=== PATIENT | male | born 1965 | race Caucasian/White ===

== ENCOUNTER 2019-12-18 08:29 | Outpatient (REF) | payer BC, SELFPAY ==
[2019-12-18 14:26] LABS: Anion Gap 15 (12-20); Blood Urea Nitrogen 18 mg/dL (9-16); Calcium 8.4 mg/dL (8.4-10.2); Carbon Dioxide 28 mmol/L (22-29); Chloride 101 mmol/L (96-108); Cholesterol 222 mg/dL; Estimated Glomerular Filt Rate > 60; Glucose Fasting 109 mg/dL (60-99); HDL Cholesterol 64 mg/dL; LDL Cholesterol Calculated 98 mg/dl; Potassium 4.2 mmol/l (3.3-5.1); Sodium 140 mmol/L (135-145); Triglycerides 302 mg/dL
[2019-12-18 14:48] LABS: TSH reflex Free T4 1.15 mIU/mL (0.32-4.0)
[2019-12-18 16:58] LABS: Alanine Aminotransferase 47 U/L (0-40); Albumin Level 4.5 g/dL (3.5-5.0); Alkaline Phosphatase 82 U/L (39-117); Anion Gap 14 (12-20); Aspartate Amino Transferase 30 U/L (5-37); Bilirubin Total 0.5 mg/dL (0.0-1.0); Blood Urea Nitrogen 17 mg/dL (9-16); Calcium 8.4 mg/dL (8.4-10.2); Carbon Dioxide 29 mmol/L (22-29); Chloride 101 mmol/L (96-108); Estimated Glomerular Filt Rate > 60; Glucose Fasting 115 mg/dL (60-99); Potassium 4.3 mmol/l (3.3-5.1); Sodium 140 mmol/L (135-145); Total Protein 7.1 g/dL (6.5-8.0)
== END 2019-12-18 08:30 | disposition home or self-care (01) ==
LOC: HO.HMGCLDS 08:29
PROVIDERS: PCP Nurse Practitioner Family; Visit Provider Nurse Practitioner Family
DX: Z00.00 Encounter for general adult medical examination without abnormal findings (principal); Z12.5 Encounter for screening for malignant neoplasm of prostate
CPT/HCPCS: 80048; 80053; 80061; 84153; 84443

== ENCOUNTER 2019-12-22 07:15 | Outpatient (REF) | payer BC, MEDICARE, SELFPAY ==
[2019-12-22 10:04] LABS: HIV Num 1 2.07 S/CO (0.00-0.99)
[2019-12-22 10:41] LABS: HIV Num 2 2.02 S/CO; HIV Num 3 2.07 S/CO
[2019-12-22 10:45] LABS: HIV AB/AG Reactive (Nonreactive)
[2019-12-23 13:52] LABS: HIV 1 Antibody NEGATIVE (NEGATIVE); HIV 2 Antibody NEGATIVE (NEGATIVE)
[2020-01-02 19:17] LABS: HIV-1 RNA TMA Qualitative Not Detected (Not Detected)
[2020-01-12 00:33] LABS: HIV Genotype NOT DETECTED
== END 2019-12-22 07:16 | disposition home or self-care (01) ==
LOC: HO.HMGCLDS 07:15
PROVIDERS: PCP Nurse Practitioner Family; Visit Provider Nurse Practitioner Family
DX: Z11.4 Encounter for screening for human immunodeficiency virus [HIV] (principal)
CPT/HCPCS: 86701; 86702; 87389; 87900; 87901

== ENCOUNTER 2020-02-16 10:39 | Outpatient (REF) | payer BC, MEDICARE, SELFPAY ==
--- NOTE | 2020-02-16 10:44 | XR_ITS ---
EXAMINATION: XR KNEE, LEFT CLINICAL INFORMATION: M25.462 - Effusion, left knee COMPARISON: None TECHNIQUE: Four views of the left knee. FINDINGS: There is no fracture or dislocation. The bony mineralization is normal. There are degenerative changes involving the medial knee joint compartment with mild joint narrowing and marginal osteophytes. There are also degenerative changes patellofemoral joint. Spurring is also seen at the insertion quadriceps and patellar tendon patella and at the origin patellar tendon. There is no erosive change or chondrocalcinosis. Trace suprapatellar effusion is suggested with mild thickening of the bursa. There is prepatellar soft tissue swelling. Hoffa's fat pad in the deep infrapatellar recess are preserved. XR/XR knee LT 4V IMPRESSION: 1. Osteoarthritic changes medial knee joint compartment and patellofemoral joint. 2. Trace suprapatellar effusion. Prepatellar soft tissue swelling. 3. Spurring at quadriceps insertion patella and at origin patellar tendon.
== END 2020-02-16 10:40 | disposition home or self-care (01) ==
LOC: HO.HMGCX 10:39
PROVIDERS: PCP Nurse Practitioner Family; Visit Provider Nurse Practitioner Family
DX: M25.462 Effusion, left knee (principal)
CPT/HCPCS: 73564

== ENCOUNTER 2020-12-16 09:15 | Outpatient (REF) | payer BC, MEDICARE, SELFPAY ==
[2020-12-16 11:41] LABS: Appearance Urine CLEAR; Color Urine YELLOW; Glucose Urine UA NEG (NEG); Leukocyte Esterase Urine NEG (NEG); Nitrite Urine NEG (NEG); Urine Blood NEG (NEG); Urine Ketones NEG (NEG); Urine Protein NEG (NEG-TRACE)
[2020-12-16 11:52] LABS: D Dimer 344 NG/ML
[2020-12-16 12:03] LABS: Alanine Aminotransferase 32 U/L (0-40); Alkaline Phosphatase 92 U/L (39-117); Anion Gap 15 (12-20); Aspartate Amino Transferase 18 U/L (5-37); Bilirubin Total 0.7 mg/dL (0.0-1.0); Blood Urea Nitrogen 13 mg/dL (9-16); Calcium 9.3 mg/dL (8.4-10.2); Carbon Dioxide 29 mmol/L (22-29); Chloride 103 mmol/L (96-108); Cholesterol 210 mg/dL; Estimated Glomerular Filt Rate > 60; Glucose Fasting 109 mg/dL (60-99); HDL Cholesterol 43 mg/dL; LDL Cholesterol Calculated 140 mg/dl; Potassium 4.6 mmol/L (3.3-5.1); Sodium 142 mmol/L (135-145); Total Protein 6.6 g/dL (6.5-8.0); Triglycerides 135 mg/dL
[2020-12-16 12:25] LABS: Prostate Specific Antigen Scr 0.53 ng/mL (<0.05-4.0); TSH reflex Free T4 0.97 uIU/mL (0.32-4.0)
== END 2020-12-16 09:16 | disposition home or self-care (01) ==
LOC: HO.HMGCLDS 09:15
PROVIDERS: PCP Nurse Practitioner Family; Visit Provider Nurse Practitioner Family
DX: Z00.00 Encounter for general adult medical examination without abnormal findings (principal); Z12.5 Encounter for screening for malignant neoplasm of prostate; D68.51 Activated protein C resistance
CPT/HCPCS: 36415; 80053; 80061; 81003; 84153; 84443; 85379

== ENCOUNTER 2021-02-13 10:50 | Outpatient (REF) | payer BC, SELFPAY ==
--- NOTE | ~2021-02-13 | US_ITS ---
EXAMINATION: US VENOUS ULTRASOUND WITH DOPPLER LOWER EXTREMITY, LEFT CLINICAL INFORMATION: Swelling COMPARISON: Previous exams August 2019 and November 2016 TECHNIQUE: Ultrasound of the deep veins is performed from the hip to the calf with compression sonography and color and pulse Doppler assessment. Spectral analysis with color-flow imaging is performed. FINDINGS: The visualized common femoral vein, superficial femoral vein, profunda femoral vein, and popliteal vein shows no evidence of deep venous thrombosis. There is chronic appearing thrombus seen in the peroneal vein and tibioperoneal trunk. This is similar to November 2016 venous ultrasound. This area was not as well appreciated on most recent exam August 2019. This may represent changes from old DVT. The left posterior tibial vein appears narrowed or small in caliber but patent. There is no Hamilton's cyst. US/US venous duplex LE IMPRESSION: Question changes from old DVT in the left peroneal vein and tibioperoneal trunk similar to November 2016 exam. Short-term follow-up exam in several days to exclude acute DVT/assess for interval change should be considered if clinically indicated. Findings will be communicated by the [place] work flow sharepoint engineer Nora Jeong.
== END 2021-02-13 10:51 | disposition home or self-care (01) ==
LOC: HO.HMGCX 10:50
PROVIDERS: PCP Nurse Practitioner Family; Visit Provider Nurse Practitioner Family
DX: M79.89 Other specified soft tissue disorders (principal)
CPT/HCPCS: 93971

== ENCOUNTER 2021-02-22 11:15 | Outpatient (REF) | payer BC, SELFPAY ==
--- NOTE | ~2021-02-22 | US_ITS ---
EXAMINATION: US VENOUS ULTRASOUND WITH DOPPLER LOWER EXTREMITY, LEFT CLINICAL INFORMATION: This a 55-year-old male with history of left leg deep vein thrombosis. COMPARISON: Comparison is made to a venous duplex ultrasound dated 02/13/2021 which demonstrated left peroneal vein deep vein thrombosis. TECHNIQUE: Ultrasound of the deep veins is performed from the hip to the calf with compression sonography and color and pulse Doppler assessment. Spectral analysis with color-flow imaging is performed. FINDINGS: The visualized common femoral vein, superficial femoral vein, profunda femoral vein, and popliteal vein shows no evidence of deep venous thrombosis. There is chronic appearing thrombus seen in the gastrocnemius vein. This was seen on the previous study dated 02/13/2021 and is likely unchanged. This may have also been present on the 2017 examination. The peroneal veins are not adequately evaluated on the current study and I cannot exclude thrombus in the peroneal veins. Thrombus in the peroneal veins would represent deep vein thrombosis. However, no extension of thrombus from the peroneal veins is seen into the popliteal fossa region. There is no Hamilton's cyst. US/US venous duplex LE LT IMPRESSION: 1. 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 2. The peroneal veins cannot be adequately evaluated on the current study. However, no extension of deep vein thrombosis above the peroneal veins is seen on the current study.
== END 2021-02-22 11:16 | disposition home or self-care (01) ==
LOC: HO.HMGCX 11:15
PROVIDERS: PCP Nurse Practitioner Family; Visit Provider Nurse Practitioner Family
DX: I82.502 Chronic embolism and thrombosis of unspecified deep veins of left lower extremity (principal)
CPT/HCPCS: 93971

== ENCOUNTER 2021-06-13 10:44 | Outpatient (REF) | payer BC, SELFPAY ==
[2021-06-13 12:24] LABS: Alanine Aminotransferase 33 U/L (0-40); Albumin Level 3.9 g/dL (3.5-5.0); Alkaline Phosphatase 89 U/L (39-117); Anion Gap 11 (12-20); Aspartate Amino Transferase 18 U/L (5-37); Bilirubin Total 0.8 mg/dL (0.0-1.0); Blood Urea Nitrogen 15 mg/dL (9-16); Calcium 9.5 mg/dL (8.4-10.2); Carbon Dioxide 30 mmol/L (22-29); Chloride 103 mmol/L (96-108); Cholesterol 124 mg/dL; Estimated Glomerular Filt Rate > 60; Glucose Random 136 mg/dL (60-115); HDL Cholesterol 42 mg/dL; LDL Cholesterol Calculated 69 mg/dl; Potassium 4.2 mmol/L (3.3-5.1); Sodium 140 mmol/L (135-145); Total Protein 6.6 g/dL (6.5-8.0); Triglycerides 66 mg/dL
[2021-06-13 12:36] LABS: Uric Acid 4.9 mg/dL (3.4-7.0)
== END 2021-06-13 10:45 | disposition home or self-care (01) ==
LOC: HO.HMGCLDS 10:44
PROVIDERS: Visit Provider Nurse Practitioner Family
DX: M10.9 Gout, unspecified (principal); E78.5 Hyperlipidemia, unspecified
CPT/HCPCS: 36415; 80053; 80061; 84550

== ENCOUNTER → 2021-07-11 07:24 | Outpatient (REF) | payer BC, SELFPAY ==
--- NOTE | 2021-07-11 08:12 | HM_ITS ---
Conclusion: 1. Patient was monitored for total period of 3 days and 1 hour 2. Baseline was normal sinus rhythm with average heart of 76 beats per minute 3. 4 short episode of supraventricular tachycardia noted with longest lasting 6 beats 4. No significant pauses or bradycardia noted 5. Very rare ectopy noted 6. Patient reported multiple events, only 1 of them correlated with PACs/PVCs MTDD
== END ==
LOC: HO.CARD 07:24
PROVIDERS: PCP Nurse Practitioner Family; Visit Provider Nurse Practitioner Family
DX: R00.1 Bradycardia, unspecified (principal); R40.20 Unspecified coma
CPT/HCPCS: 93242

== ENCOUNTER 2021-07-27 09:26 | Outpatient (REF) | payer BC, SELFPAY ==
[2021-07-27 11:09] LABS: MANUAL DIFF FLAG NO
[2021-07-27 11:23] LABS: Basophils Percent Auto 0.9 % (0-2); Eosinophils Absolute Auto 0.1 X10*3/uL (0.0-0.4); Eosinophils Percent Auto 2.3 % (0-4); Hematocrit 42.2 % (42.0-52.0); Hemoglobin 14.1 g/dl (14.0-18.0); Imm Gran Abs Auto 0.01 X10*3/uL (0.00-0.03); Imm Gran Pct Auto 0.3 % (0.0-0.4); Lymphocytes Percent Auto 27.5 % (20-40); Mean Corpuscular HGB Conc 33.4 g/dl (31.0-36.0); Mean Corpuscular Hemoglobin 28.5 pg (27.0-33.0); Mean Corpuscular Volume 85.4 fL (80.0-98.0); Mean Platelet Volume 9.9 fL (9.4-12.4); Monocytes Absolute Auto 0.3 X10*3/uL (0.1-1.2); Monocytes Percent Auto 9.2 % (2-11); Neutrophils Absolute Auto 2.1 x10*3/uL (2.0-8.3); Neutrophils Percent Auto 59.8 % (45-73); Platelet Count 250 X10*3/uL (160-400); Red Blood Count 4.94 X10*6/uL (4.60-5.80); Red Cell Distribution Width 13.1 % (11.0-16.0); White Blood Count 3.5 X10*3/uL (4.8-10.8)
[2021-07-27 11:48] LABS: Alanine Aminotransferase 57 U/L (0-40); Albumin Level 4.2 g/dL (3.5-5.0); Alkaline Phosphatase 96 U/L (39-117); Anion Gap 11 (12-20); Aspartate Amino Transferase 34 U/L (5-37); Bilirubin Total 0.6 mg/dL (0.0-1.0); Blood Urea Nitrogen 12 mg/dL (9-16); Calcium 9.2 mg/dL (8.4-10.2); Carbon Dioxide 29 mmol/L (22-29); Chloride 104 mmol/L (96-108); Estimated Glomerular Filt Rate > 60; Glucose Random 102 mg/dL (60-115); Iron 94 mcg/dL (45-160); Percent Iron Saturation 30 % (15-50); Potassium 4.1 mmol/L (3.3-5.1); Sodium 140 mmol/L (135-145); Total Iron Binding Capacity 314 mcg/dL (228-428); Total Protein 6.6 g/dL (6.5-8.0); Unsaturated Iron Binding 220 ug/dL
[2021-07-27 12:10] LABS: Ferritin 88 ng/mL (20-250)
[2021-07-27 12:12] LABS: Folate 17.4 ng/mL (> or = 4.0); Vitamin B12 519 pg/mL (200-900)
== END 2021-07-27 09:27 | disposition home or self-care (01) ==
LOC: HO.HMGCLDS 09:26
PROVIDERS: PCP Nurse Practitioner Family; Visit Provider Internal Medicine Medical Oncology
DX: I95.1 Orthostatic hypotension (principal)
CPT/HCPCS: 36415; 80053; 82607; 82728; 82746; 83540; 85025

== ENCOUNTER 2021-08-09 11:46 | Outpatient (REF) | payer BC, SELFPAY ==
--- NOTE | ~2021-08-09 | XR_ITS ---
EXAMINATION: XR CERVICAL SPINE CLINICAL INFORMATION: Cervical disc disorder COMPARISON: None TECHNIQUE: 3 views of the cervical spine were obtained. FINDINGS: There is maintained cervical lordosis. The vertebral heights, alignment is normal. There is loss of C5-C6, C6-C7 and C7-T1 disc heights with mild ventral spondylosis. No visible acute fracture, dislocation or subluxation seen. The prevertebral soft tissues are normal. XR/XR cervical spine 2V IMPRESSION: Mild degenerative disc changes with spondylosis C5-C6, C6-C7 and C7-T1 disc levels. No visible acute fracture or dislocation seen.
[2021-08-09 13:45] LABS: Alanine Aminotransferase 36 U/L (0-40); Albumin Level 4.2 g/dL (3.5-5.0); Alkaline Phosphatase 102 U/L (39-117); Aspartate Amino Transferase 22 U/L (5-37); Bilirubin Direct 0.2 mg/dL (0.0-0.5); Bilirubin Total 0.5 mg/dL (0.0-1.0); Total Protein 6.6 g/dL (6.5-8.0)
[2021-08-10 09:17] LABS: HBc Num1 0.09 S/CO (0.00-0.79); HBsAGNum1 0.22 S/CO (0.00-0.99); Hepatitis B Core Antibody Nonreactive (Nonreactive); Hepatitis B Surface Antigen Negative (Negative); ~HepC Num1 0.19 S/CO (0.00-0.79); ~Hepatitis B Surface Antibody NONREACTIVE (Nonreactive); ~Hepatitis C Antibody Nonreactive (Nonreactive)
[2021-08-11 07:49] LABS: Hepatitis A Antibody IgM 0.28 Index (0-0.79); ~Hepatitis A Antibody IgM Nonreactive (Nonreactive)
== END 2021-08-09 11:47 | disposition home or self-care (01) ==
LOC: HO.XRAY 11:46
PROVIDERS: PCP Nurse Practitioner Family; Visit Provider Nurse Practitioner Family
DX: I95.1 Orthostatic hypotension (principal); R74.8 Abnormal levels of other serum enzymes; M50.90 Cervical disc disorder, unspecified, unspecified cervical region
CPT/HCPCS: 36415; 72040; 80076; 86704; 86706; 86709; 86803; 87340

== ENCOUNTER 2021-08-31 09:17 | Outpatient (REF) | payer BC, SELFPAY ==
--- NOTE | ~2021-08-31 | US_ITS ---
EXAMINATION: US ABDOMEN COMPLETE CLINICAL INFORMATION: Elevated liver function tests. COMPARISON: None TECHNIQUE: Real-time imaging of the abdominal viscera. FINDINGS: PANCREAS: Normal. ABDOMINAL AORTA: The proximal, mid, and distal segments are normal in caliber. INFERIOR VENA CAVA: Visualized portions are normal. LIVER: The liver is normal in size. The liver contour is normal. There is moderately increased liver parenchymal echogenicity. No focal hepatic lesion. There is no intrahepatic biliary duct dilatation seen. GALLBLADDER: There are multiple large shadowing gallstones. The gallbladder is physiologically distended without evidence of polyps, wall thickening or pericholecystic fluid. COMMON BILE DUCT: Normal in caliber measuring 0.2 cm in diameter. RIGHT KIDNEY: Normal. No hydronephrosis. No renal calculi or focal parenchymal lesions. The kidney measures 11.6 cm in maximum dimension. LEFT KIDNEY: Normal. No hydronephrosis. No renal calculi or focal parenchymal lesions. The kidney measures 11.1 cm in maximum dimension. SPLEEN: Normal. The spleen measures 12.6 cm in maximum dimension. FREE FLUID: None. US/US abdomen complete IMPRESSION: 1. There is mild generalized increase in hepatic echotexture, consistent with fatty infiltration or hepatocellular disease. Please correlate clinically. No focal hepatic mass or intrahepatic biliary dilatation is seen. 2. There is cholelithiasis, without cholecystitis or choledocholithiasis.
== END 2021-08-31 09:18 | disposition home or self-care (01) ==
LOC: HO.HMGCX 09:17
PROVIDERS: PCP Nurse Practitioner Family; Visit Provider Nurse Practitioner Family
DX: R74.8 Abnormal levels of other serum enzymes (principal)
CPT/HCPCS: 76700

== ENCOUNTER 2021-10-23 12:23 | Outpatient (REF) | payer BC, SELFPAY ==
--- NOTE | ~2021-10-23 | MR_ITS ---
EXAMINATION: MR LUMBAR SPINE WITHOUT CONTRAST CLINICAL INFORMATION: 56-year-old with lumbar radiculopathy. Low back pain with bilateral arm and leg numbness. COMPARISON: None TECHNIQUE: MRI of the lumbar spine was obtained using routine sequences without contrast. FINDINGS: Coronal Alignment: Normal. Sagittal Alignment: There is 2 to 3 mm of grade 1 retrolisthesis at L1-L2, L2-L3 and L3-L4 with otherwise normal lumbar lordotic curvature. Lumbosacral Junction: Normal. Five (5) nonrib-bearing lumbar-type vertebral bodies. Vertebral Bodies: Normal height. Disc Spaces and Endplates: [id number] intervertebral disc space height loss at L3-L4, L4-L5 and L5-S1 with Schmorl's nodes and disc desiccation at these levels, with multilevel spondylosis between L1-L5 S1 inclusive. Vebq-la-svyyjjga disc space height loss at L2-L3 and moderate disc space height loss at L1-L2 with disc desiccation also noted with Schmorl's nodes at L1-L2. Spinal Canal: No abnormal developmental findings. Bone Marrow: Type I degenerative marrow signal changes seen along the endplates at L1-L2, L3-L4 and L4-L5 and to a lesser degree at L5-S1 with type II marrow signal changes predominantly at L5-S1 and to a lesser degree at the other levels. No suspicious marrow replacing process. Conus Medullaris: Terminates at L1. Morphology and signal is normal. Intradural Nerve Roots: Within normal limits. L5-S1: Posterolateral disc osteophyte complex asymmetric to the right with slight flattening of the dural sac on the right, encroaching on the inferior left neural foramen. There is a superimposed central to right paramedian extruded disc herniation with mild caudal migration indenting the ventral thecal sac slightly encroaching on the traversing right S1 nerve root sleeve. No significant facet arthrosis or canal stenosis. Mild right-sided neural foraminal stenosis is noted with disc osteophyte complex abutting the exiting right L5 nerve root. L4-L5: Mild disc bulging with bilateral foraminal disc protrusions with slight flattening of the ventral dural sac noted. Mild ligamentum flavum thickening and mild facet arthrosis without significant canal stenosis. Mild foraminal narrowing noted bilaterally with bilateral disc protrusions contacting the exiting L4 nerve roots bilaterally. L3-L4: Mild retrolisthesis with disc bulging and superimposed small central disc herniation with mild flattening of the ventral dural sac. There is a small right lateral extraforaminal disc protrusion. Mild facet arthropathy noted bilaterally without significant canal stenosis. No significant neural foraminal stenosis. Right lateral disc protrusion contacts the extraforaminal right L3 nerve root sleeve. L2-L3: Shallow broad-based central to left paramedian disc protrusion, with mild flattening of the ventral dural sac and minor facet arthrosis without significant canal stenosis or neuroforaminal compromise. L1-L2: Retrolisthesis and shallow central disc protrusion with mild flattening of the ventral dural sac is noted with minor facet arthrosis without significant canal stenosis. Mild foraminal narrowing is noted bilaterally. Paraspinal/Retroperitoneal: The paravertebral soft tissues are unremarkable. MR/MR lumbar spine wo con IMPRESSION: 1. Discogenic degenerative changes between L1-L2 and L5-S1 inclusive with multilevel spondylosis, with mild degrees of retrolisthesis between L1-L2 and L3-L4 inclusive. 2. Multilevel disc bulging and disc herniations as described above with mild degrees of multilevel bilateral facet arthropathy without significant spinal canal stenosis. There are predominately mild degrees of multilevel neural foraminal narrowing with disc osteophyte complex abutting the exiting right L5 nerve root and central extruded disc herniation at L5-S1 slightly encroaching on the traversing right S1 nerve root sleeve. Lateral disc protrusions at L4-L5 contacts the exiting L4 nerve roots and right lateral disc protrusion at L3-L4 contacts the extra foraminal right L3 nerve root.
== END 2021-10-23 12:24 | disposition home or self-care (01) ==
LOC: HO.MRI 12:23
PROVIDERS: Visit Provider Nurse Practitioner Family
DX: M54.16 Radiculopathy, lumbar region (principal)
CPT/HCPCS: 72148

== ENCOUNTER → 2021-11-13 09:11 | Outpatient (BNVA) | payer BC, SELFPAY | PROVIDERS: PCP Nurse Practitioner Family; Referring Provider Nurse Practitioner Family; Visit Provider Internal Medicine | DX: I95.1 Orthostatic hypotension (principal) | CPT/HCPCS: 93005 ==

== ENCOUNTER → 2021-11-27 07:11 | Outpatient (REF) | payer BC, SELFPAY ==
--- NOTE | 2021-11-27 07:13 | CA_ITS ---
Transthoracic Echocardiogram Patient (Last, First, Middle): Amadou Colon, Gender: Male Date of : 1965 Age: 56 Procedure Date: 11/27/2021 Procedure Type: Transthoracic Echocardiogram Location: OP Height: 185.42 cm Weight: 88.45 kg BSA: 2.13 m2 Heart Rate: 86 bpm BP: 118 / 60 mmHg Home Health Lvn: SB Referring MD: Saeed Zhang MD Symptoms: R55 - Syncope and collapse Study Quality: Adequate ECG Rhythm: Sinus Conclusions: - The left ventricular systolic function is low normal. The visually estimated ejection fraction is between 50-55%. - Mildly increased right ventricular cavity size. - No obvious valvular pathology seen on this study. Findings Left Ventricle Normal left ventricular cavity size. There is normal left ventricular wall thickness. The left ventricular systolic function is low normal. The visually estimated ejection fraction is between 50-55%. There is no evidence of regional wall motion abnormalities. Diastolic function is normal for age. LV peak GLS -15.5%. Right Ventricle Mildly increased right ventricular cavity size. There is normal right ventricular systolic function. Atria Both atria are normal in size. Aortic Valve There is a normal trileaflet aortic valve. There is no aortic valve stenosis. There is no aortic valve regurgitation. Mitral Valve The mitral valve appears normal. There is no mitral valve regurgitation. There is no mitral valve stenosis. Pulmonic Valve The pulmonic valve is likely normal. Tricuspid Valve Normal tricuspid valve structure. There is trace tricuspid valve regurgitation. Tricuspid regurgitation envelope is inadequate for calculation of right ventricular systolic pressure. Great Vessels The asc aorta is normal in size. Venous The inferior vena cava is normal in size and collapses less than 50% with inspiration. Pericardium/Pleural There is no evidence of pericardial effusion. Prior Study Comparison No prior study available for comparison. Recommendations, Care & Conclusions No obvious valvular pathology seen on this study. Measurements 2D Linear Measurements IVSd: 0.82 0.6-0.9/0.6-1.0 cm LVIDd: 5.51 3.9-5.3/4.2-5.9 cm LVIDd Index: 2.59 2.4-3.2/2.2-3.1 cm/m2 LVIDs: 3.92 2.0-3.6 cm LVPWd: 0.95 0.7-1.1 cm LA Diam: 3.70 2.7-3.8/3.0-4.0 cm LAIDs Index: 1.74 1.5-2.3 cm/m2 LV Mass: 226.96 67-162/88-224 g LV Mass Index: 106.55 43-95/49-115 g/m2 LVOT Diam: 2.50 3.0+(-)1.3 cm 2D Systolic Function EF 4C: 65.40 >55% EF 2C: 58.50 >55% EF BiP: 62.00 >55% Mitral Valve MV Pk E: 0.61 MV PK A: 0.78 MV Decel Time: 142.00 E/A: 0.80 E'Lateral: 12.50 E'Medial: 6.53 E/E' Med: 9.30 E/E' Lat: 4.90 PHT: 42.00 MVA PHT: 5.24 Decel [place]: 4.29 Aortic Valve AoV Pk Jason: 1.09 AoV Mn Jason: 0.81 AoV VTI: 0.24 AoV Pk Grad: 5.00 Aov Mn Grad: 3.00 SHAGGY Cont.VTI: 3.06 LVOT LVOT Pk Jason: 0.79 LVOT Mn Jason: 0.55 LVOT VTI: 0.15 LVOT Pk Grad: 2.00 LVOT Mn Grad: 1.00 LVOT Diam: 2.50 LVOT Area: 4.91 Diastolic Function MV Pk E: 0.61 MV Pk A: 0.78 E/A: 0.80 E'Medial: 6.53 E/E' Med: 9.30 E' Laterial: 12.50 E/E' Lat: 4.90 Right Ventricle TAPSE (mm): 23.10 TVS' Jason: 11.20 Tricuspid Valve RA Press: 8.00 Great Vessels Aorta Sinus of Valsalva: 3.70 2.0-3.5 cm Ao Asc: 3.80 2.1-3.4 cm Pulmonary Valve PV Pk Jason: 0.78 Peak PV Grad: 2.00 Updated in Other Vendor System with Status of Final Saeed Zhang MD electronically signed on 11/27/2021 9:16:22 AM with status of Final
== END ==
LOC: HO.CARD 07:11
PROVIDERS: PCP Nurse Practitioner Family; Visit Provider Internal Medicine
DX: R55 Syncope and collapse (principal)
CPT/HCPCS: 93306; 93356

== ENCOUNTER 2021-12-21 10:28 | Outpatient (REF) | payer BC, SELFPAY ==
--- NOTE | ~2021-12-21 | US_ITS ---
EXAMINATION: US VENOUS BILATERAL LOWER EXTREMITIES (REFLUX EXAM) CLINICAL INDICATION: Leg pain and varicose veins. COMPARISON: None TECHNIQUE: Color flow triplex imaging and compression Doppler was performed to evaluate both the deep and the superficial systems bilaterally. To evaluate the superficial system, the examination was performed in the upright position. Color-flow Doppler ultrasound and compression ultrasound were utilized. In addition, maneuvers were utilized to demonstrate reflux. FINDINGS: 1. DEEP VENOUS ULTRASOUND OF THE RIGHT LOWER EXTREMITY: Respiratory variation, normal compression and augmented flow are noted in the right common femoral vein as well as the right popliteal vein and there is no evidence of deep venous thrombosis at these locations. There is no evidence of reflux in the deep system in either the common femoral vein or the popliteal vein. There is no evidence of a Hamilton's cyst. 2. SUPERFICIAL ULTRASOUND WITH DOPPLER OF RIGHT LOWER EXTREMITY: The right great saphenous vein at the saphenofemoral junction measures 8.3 mm, at the proximal thigh 8.9 mm, at the mid thigh 4.6 mm, above the knee 5.2 mm, at the knee 5.0 mm, [id number] 5.1 mm, midcalf 3.5 mm and at the ankle measures 2.5 mm. Less than 1 second of segmental reflux is noted just above the knee Duplicated Right Great Saphenous Vein: There is a medial accessory 4.2 mm saphenous that does not reflux. The right small saphenous vein measures 3.2 mm and shows no reflux. Accessory Vein of Giacomini: None Incompetent Perforators: None Refluxing varices. There is a 4 mm calf varix present with 3 seconds of reflux. 3. DEEP VENOUS ULTRASOUND OF THE LEFT LOWER EXTREMITY: Respiratory variation, normal compression and augmented flow are noted in the left common femoral vein as well as the left popliteal vein and there is no evidence of deep venous thrombosis at these locations. There is deep venous reflux present on the left in the mid femoral vein through the popliteal vein with reflux times as high as 2.7 seconds. There is no evidence of a Hamilton's cyst. 4. SUPERFICIAL ULTRASOUND WITH DOPPLER OF LEFT LOWER EXTREMITY: Left great saphenous vein at the saphenofemoral junction measures 5.6 mm, at the proximal thigh 9.3 mm, at the mid thigh 5.3 mm, above the knee 6.3 mm, at the knee 4.3 mm, [id number] 6.3 mm, midcalf 4.0 mm and at the ankle measures 4.5 mm. There is reflux throughout most of the saphenous vein with reflux times exceeding 3 seconds. Duplicated Left Great Saphenous Vein: There is a medial accessory 2.8 mm saphenous that does not reflux. The left small saphenous vein measures 3.6 mm and shows no reflux. Accessory Vein of Giacomini: None Incompetent Perforators: Two incompetent perforators are noted in the distal thigh and distal calf measuring 2.0 and 2.4 mm respectively both of which reflux (3.1 seconds and 1.9 seconds). Refluxing Varices: Yes. Multiple refluxing varices are seen measuring as much is 6.5 mm with reflux times of over 3 seconds. US/US venous duplex LE BI IMPRESSION: 1. Deep venous reflux on the left with gross reflux in the left great saphenous vein. 2. The right saphenous venous systems are essentially normal with only a tiny area of reflux just above the right knee in the great saphenous vein. 3. Incompetent perforators on the left as described above with refluxing varices bilaterally.
== END 2021-12-21 10:29 | disposition home or self-care (01) ==
LOC: HO.US 10:28
PROVIDERS: Visit Provider Surgery Vascular Surgery
DX: I83.12 Varicose veins of left lower extremity with inflammation (principal)
CPT/HCPCS: 93970

== ENCOUNTER → 2022-01-12 09:24 | Outpatient (BNVA) | payer BC, SELFPAY | PROVIDERS: PCP Nurse Practitioner Family; Visit Provider Surgery Vascular Surgery | DX: I83.12 Varicose veins of left lower extremity with inflammation (principal); M79.605 Pain in left leg | CPT/HCPCS: 36482 ==

== ENCOUNTER 2022-01-15 13:14 | Outpatient (REF) | payer BC, SELFPAY ==
--- NOTE | ~2022-01-15 | US_ITS ---
EXAMINATION: US VENOUS ULTRASOUND WITH DOPPLER LOWER EXTREMITY, LEFT CLINICAL INFORMATION: Left leg pain COMPARISON: None TECHNIQUE: Ultrasound of the deep veins is performed from the hip to the calf with compression sonography and color and pulse Doppler assessment. Spectral analysis with color-flow imaging is performed. FINDINGS: There is normal venous compression and respiratory variation and augmented flow. The visualized common femoral vein, superficial femoral vein, profunda femoral vein, popliteal vein, and the trifurcation region shows no evidence of deep venous thrombosis. There is no significant popliteal fossa cyst. Greater saphenous vein is 2 mm. Retrograde flow noted from the left SFJ into the GSV is only 5 mm. If the patient's symptoms persist, followup ultrasound in 5 days 7 days might be of value to exclude proximal propagation from a non-visualized calf vein. US/US venous duplex LE IMPRESSION: No DVT demonstrated in the left lower extremity.
== END 2022-01-15 13:15 | disposition home or self-care (01) ==
LOC: HO.US 13:14
PROVIDERS: Visit Provider Surgery Vascular Surgery
DX: M79.605 Pain in left leg (principal)
CPT/HCPCS: 93971

== ENCOUNTER 2022-12-13 09:04 | Outpatient (REF) | payer MEDICARE, SELFPAY ==
[2022-12-13 11:17] LABS: MANUAL DIFF FLAG NO
[2022-12-13 11:36] LABS: Eosinophils Absolute Auto 0.1 X10*3/uL (0.0-0.4); Eosinophils Percent Auto 2.4 % (0-4); Hematocrit 41.2 % (42.0-52.0); Imm Gran Abs Auto 0.02 X10*3/uL (0.00-0.03); Imm Gran Pct Auto 0.5 % (0.0-0.4); Lymphocytes Absolute Auto 1.1 X10*3/uL (1.2-4.9); Lymphocytes Percent Auto 26.6 % (20-40); Mean Corpuscular Hemoglobin 30.8 pg (27.0-33.0); Mean Corpuscular Volume 90.5 fL (80.0-98.0); Mean Platelet Volume 9.9 fL (9.4-12.4); Monocytes Absolute Auto 0.4 X10*3/uL (0.1-1.2); Monocytes Percent Auto 9.4 % (2-11); Neutrophils Absolute Auto 2.5 x10*3/uL (2.0-8.3); Neutrophils Percent Auto 60.1 % (45-73); Platelet Count 211 X10*3/uL (160-400); Red Blood Count 4.55 X10*6/uL (4.60-5.80); Red Cell Distribution Width 12.5 % (11.0-16.0); White Blood Count 4.1 X10*3/uL (4.8-10.8)
[2022-12-13 11:44] LABS: D Dimer High Sensitivity < 150 NG/ML
[2022-12-13 11:55] LABS: Appearance Urine Clear; Color Urine Yellow; Glucose Urine UA Negative (Negative); Leukocyte Esterase Urine Negative (Negative); Nitrite Urine Negative (Negative); PH 5.5 (5.0-9.0); Specific Gravity - Urine 1.015 (1.005-1.025); Urine Blood Negative (Negative); Urine Ketones Negative (Negative); Urine Protein Negative (Neg-Trace)
[2022-12-13 12:31] LABS: Alanine Aminotransferase 32 U/L (0-40); Albumin Level 4.1 g/dL (3.5-5.0); Alkaline Phosphatase 75 U/L (39-117); Anion Gap 14 (12-20); Aspartate Amino Transferase 23 U/L (5-37); Bilirubin Total 0.6 mg/dL (0.0-1.0); Blood Urea Nitrogen 11 mg/dL (9-16); Calcium 9.4 mg/dL (8.4-10.2); Carbon Dioxide 27 mmol/L (22-29); Chloride 105 mmol/L (96-108); Cholesterol 155 mg/dL (<200); Estimated Glomerular Filt Rate > 60; Glucose Fasting 114 mg/dL (60-99); Glucose Random 113 mg/dL (60-115); HDL Cholesterol 60 mg/dL (>40); LDL Cholesterol Calculated 54 mg/dL (<100); Potassium 3.9 mmol/L (3.3-5.1); Sodium 142 mmol/L (135-145); Total Protein 6.8 g/dL (6.5-8.0); Triglycerides 205 mg/dL (<150)
[2022-12-13 12:43] LABS: Prostate Specific Antigen Scr 0.38 ng/mL (<0.05-4.0)
[2022-12-13 12:52] LABS: TSH reflex Free T4 1.43 uIU/mL (0.32-4.0)
== END 2022-12-13 09:05 | disposition home or self-care (01) ==
LOC: HO.HMGCLDS 09:04
PROVIDERS: Internal Medicine Medical Oncology; PCP Nurse Practitioner Family; Visit Provider Nurse Practitioner Family
DX: Z00.00 Encounter for general adult medical examination without abnormal findings (principal); R00.1 Bradycardia, unspecified; Z12.5 Encounter for screening for malignant neoplasm of prostate; E78.5 Hyperlipidemia, unspecified
CPT/HCPCS: 36415; 80053; 80061; 81003; 84153; 84443; 85025; 85379

== ENCOUNTER 2022-12-19 07:31 | Outpatient (AMB) | payer MEDICARE, SELFPAY ==
--- NOTE | 2022-12-19 07:32 | A.OFFPC_ITS ---
Vital Signs 12/19/22 07:35 12/19/22 08:32 Weight 198 lb BP 124/90 H 130/88 Blood Pressure Location Rt brachial Position Sitting Pulse 90 Pulse Source Pulse Oximeter Pulse Oximetry (%) 98 Oxygen Delivery Method Room Air Intake Visit Reasons: Annual PE Allergies No Known Allergies [No Known Allergies*] Allergy (Verified 12/19/22 07:35) Medication List - Last Reconciled 12/19/22 by FABRICIO Garcia loratadine 10 mg PO DAILY multivitamin 1 tab PO DAILY omeprazole 1 cap PO DAILY prazosin 1 mg PO BEDTIME rivaroxaban (Xarelto) 20 mg PO DAILY simvastatin 40 mg PO DAILY venlafaxine ER 225 mg PO DAILY Tobacco use date assessed: 05/02/22 Dental Screening Dental Screen Date: 12/19/22 Did you have a dental visit in the last 12 months?: Yes Did you have a dental problem in the last 6 months where you did not have access to dental care?: No Was dental information given to patient?: Patient has dentist HPI Annual PE HPI Details Pt is here for a PE. Labs were already performed. Colon screen is up to date. PSA is up to date. Denies dribbling with urination, weak stream, and incomplete bladder emptying. Pt reports skin lesions to his right gnosticism and left occipital regions. Will refer to derm. [facility] Medical History Anxiety DVT (deep venous thrombosis) Erectile dysfunction Factor 5 Leiden mutation, heterozygous Gout Internal hemorrhoids Patellar dislocation Venous reflux Surgical History History of left knee surgery History of varicose veins Family History Father Cancer Diabetes mellitus Mother History of knee replacement HTN (hypertension) Melanoma Maternal Grandfather No problems noted. Maternal Grandmother Glaucoma Paternal Grandfather No problems noted. Paternal Grandmother No problems noted. Social History Household Members: Spouse Housing: House Are you a primary career technical education teacher to a significant other at home: No Do you presently have visiting nurse or other home services: No Patient Tobacco Use Status: Never used Tobacco e-Cigarette/Vaping Use: Never Used service: Yes Current occupational status: retired Cognitive needs: No Hearing needs: No Vision needs: Yes Questionnaire PHQ-9 Over the last 2 weeks, how often have you been bothered by any of the following problems? 1. Little interest or pleasure in doing things: more than half the days 2. Feeling down, depressed, or hopeless: more than half the days 3. Trouble falling or staying asleep, or sleeping too much: nearly every day 4. Feeling tired or having little energy: nearly every day 5. Poor appetite or overeating: more than half the days 6. Feeling bad about yourself - or that you are a failure or have let yourself or your family down: more than half the days 7. Trouble concentrating on things, such as reading the newspaper or watching television: more than half the days 8. Moving or speaking so slowly that other people could have noticed. Or the opposite - being so fidgety or restless that you have been moving around a lot more than usual: more than half the days 9. Thoughts that you would be better off or of hurting yourself in some way: not at all Total score: 18 Depression Screening Interpretation: Positive Depression Screening Done: Yes 62439 - PHQ-9 Billing: Yes Source: Developed by Drs. Eduar Martell, Britney Marie, Zi Thomas and colleagues, with an educational mae from [employer]. Thrive Questionnaire Date Thrive assessed: 12/19/22 I am a: Patient What is your living situation today?: I have a steady place to live Within the past 12 months, did the food you bought not last and you didn't have the money to get more?: Never true Within the past 12 months, did you worry whether your food would run out before you got money to buy more?: Never true Do you have trouble paying for medicines?: No Do you have trouble getting transportation to medical appointments?: No Do you have trouble paying your heating and electricity bill?: No Do you have trouble taking care of your child, family member or friend?: No Do you have trouble with day-to-day activities such as bathing, preparing meals, shopping, managing finances, etc.?: No Are you currently unemployed and looking for a job?: No Are you interested in more education?: No AUDIT C Alcohol Use Questionnaire (AUDIT-C) 1. How often do you have a drink containing alcohol?: Never 3. How often do you have six or more drinks on one occasion?: Never Total Score: 0 Score Reviewed/Action Taken: No SABI-7 AMB Questionnaire SABI-7 Date SABI - 7 assessed: 12/19/22 Feeling nervous, anxious, or on edge: 2 = More than half the days Not being able to stop or control worryin = More than half the days Worrying too much about different things: 2 = More than half the days Trouble relaxin = Nearly every day Being so restless that it is hard to sit still: 3 = Nearly every day Becoming easily annoyed or irritable: 2 = More than half the days Feeling afraid as if something awful might happen: 2 = More than half the days Total SABI-7 score (0-4 normal; 5-9 mild; 10-14 moderate; 15-21 severe): 16 Source: Developed by Drs. Eduar Martell, Britney Marie, Zi Thomas and colleagues, with an educational mae from [employer]. SABI-7 Assessment Billing SABI-7 Assessment Tool: SABI-7 Assessment 59309 Review of Systems Const Denies chills and Denies fever(s) Eyes Denies blurry vision ENT Denies vertigo, Denies dizziness and Denies sore throat Card Denies chest pain at rest, Denies chest pain with activity, Denies diaphoresis, Denies dyspnea and Denies dyspnea on exertion Resp Denies cough, Denies dyspnea, Denies dyspnea on exertion and Denies wheezing GI Denies abdominal pain, Denies melena, Denies hematochezia, Denies constipation, Denies diarrhea and Denies loose stools Denies hematuria Musc Denies numbness and Denies tingling Skin/Breast Denies lesions Neuro Denies vertigo, Denies dizziness, Denies numbness and Denies tingling Psych Denies anxiety, Denies depression, Denies homicidal ideation, Denies suicidal ideation and Denies other (substance abuse) Aller/Immun Denies wheezing Physical exam (Primary Care) Vital Signs: Last Vital Signs Pulse 90 12/19/22 07:35 BP 124/90 H 12/19/22 07:35 Pulse Ox 98 12/19/22 07:35 Oxygen Delivery Method Room Air 12/19/22 07:35 Tobacco/Smoking Status: Tobacco use Status Tobacco use date assessed 05/02/22 12/19/22 07:34 Patient Tobacco Use Status Never used Tobacco 12/19/22 07:34 e-Cigarette/Vaping Use Never Used 12/19/22 07:34 Depression Screening Interpretation: Positive Thrive Assessment: Date of Thrive Assessment Date Thrive assessed 12/18/21 12/19/22 07:34 Const General: cooperative Nutritional Appearance: well nourished Orientation/consciousness: patient oriented x3 HENMT Head: Yes normal to inspection, Yes normocephalic and Yes atraumatic Ears: TM's normal bilaterally Eyes General: appearance normal, both eyes and all related structures Alignment and Position: alignment normal and position normal Neck Neck: Yes normal visual inspection and Yes no lymphadenopathy Thyroid: Thyroid normal Resp Effort & Inspection: normal respiratory effort Auscultation: clear to auscultation bilaterally Cardio Rate: regular rate Rhythm: regular rhythm Heart sounds: S1 normal heart sound present, S2 normal heart sound present and no murmurs GI Palpation (GI): Soft to palpation and nontender Auscultation: normal bowel sounds Male General Exam: Yes normal external exam Penis: normal penis Scrotum: scrotum normal, testes descended bilaterally and no inguinal hernias Testes: no testicular mass Skin Other: right temp region with 2 small slightly raised dry darker circular lesions, circular lesion also noted to left lower occipital region. small acne lesions noted to back Rashes: no rashes Neuro General: patient oriented x3, moves all extremities, no focal motor deficits and deep tendon reflexes 2+ bilaterally Romberg Test: Negative Extrem Left lower extremity: edema (trace) Psych Appearance: grossly normal Mental Status: mental status grossly normal Speech and movement: Normal speech and movement present Affect: normal affect Attitude: cooperative Thought process: Normal thought process present Thought content: Normal thought content present Insight: Good insight present (Psych) Judgement: Good judgement present (Psych) Assessment and Plan Assessment & Plan (1) Elevated fasting blood sugar: Code(s): R73.01 - Impaired fasting glucose (2) Skin lesions: Code(s): L98.9 - Disorder of the skin and subcutaneous tissue, unspecified (3) Physical exam: Code(s): Z00.00 - Encounter for general adult medical examination without abnormal findings Plan The patient agreed to the use of a medical officer for this encounter. Scribed for FABRICIO Arias by Gail Lebron medical officer, on 12/19/2022 at 07:45 EST. Orders: Orders Complete Blood Count Auto Diff Today R73.01 - Impaired fasting glucose Comprehensive [facility]. Panel Fast Today R73.01 - Impaired fasting glucose Hemoglobin A1c Today R73.01 - Impaired fasting glucose Referrals Dermatology Referral L98.9 - Disorder of the skin and subcutaneous tissue, unspecified Coding Level of Care Code Est Pt Prev Care 40-64y(20466) Diagnoses Elevated fasting blood sugar R73.01 Skin lesions L98.9 Physical exam Z00.00 Additional Codes SABI-7 Assessment Billing - SABI-7 Assessment Tool: SABI-7 Assessment 33288 ([id number])
[2022-12-19 07:35] VITALS: BP 124/90; PULSE 90; O2SAT 98
[2022-12-19 08:32] VITALS: BP 130/88
== END 2022-12-19 08:09 | disposition home or self-care (01) ==
PROVIDERS: Visit Provider Nurse Practitioner Family
DX: R73.01 Impaired fasting glucose (principal); L98.9 Disorder of the skin and subcutaneous tissue, unspecified; Z00.00 Encounter for general adult medical examination without abnormal findings
CPT/HCPCS: 99396

== ENCOUNTER 2023-02-14 13:24 | Outpatient (AMB) | payer MEDICARE, SELFPAY ==
--- NOTE | 2023-02-14 13:27 | MHC.PC.OV ---
Vital Signs 02/14/23 13:30 Height 5 ft 8 in Weight 240 lb BMI 36.5 BP 140/98 H Blood Pressure Location Lt brachial Position Sitting Pulse 112 H Pulse Source Pulse Oximeter Pulse Oximetry (%) 98 Oxygen Delivery Method Room Air Intake Visit Reasons: congestion x 2 weeks Intake Note: Patient here for congestion thats been present for about 2 weeks, also has a cough, mucus and chest pressure. Last tested himself for covid about 4 days ago. Allergies No Known Allergies [No Known Allergies*] Allergy (Verified 02/14/23 13:32) Medication List - Last Reconciled 02/14/23 by ALEX Garcia-STEVE loratadine 10 mg PO DAILY multivitamin 1 tab PO DAILY omeprazole 1 cap PO DAILY prazosin 1 mg PO BEDTIME rivaroxaban (Xarelto) 20 mg PO DAILY simvastatin 40 mg PO DAILY venlafaxine ER 225 mg PO DAILY Tobacco use date assessed: 02/14/23 Dental Screening Dental Screen Date: 02/14/23 Did you have a dental visit in the last 12 months?: Yes Did you have a dental problem in the last 6 months where you did not have access to dental care?: No Was dental information given to patient?: Patient has dentist HPI congestion x 2 weeks HPI Details Pt c/o fever, chills, cough, congestion, and body aches. Pt reports that his symptoms started in mid-January. Will swab for COVID/flu/RSV. Will send zpak, benzonatate, and prednisone. Denies chest pain, shortness of breath, and dizziness. elevated BP and HR, most likely related to current illness. [facility] Medical History Venous reflux Gout Internal hemorrhoids Factor 5 Leiden mutation, heterozygous Anxiety DVT (deep venous thrombosis) Erectile dysfunction Patellar dislocation Surgical History History of varicose veins History of left knee surgery Family History Father Cancer Diabetes mellitus Mother History of knee replacement HTN (hypertension) Melanoma Maternal Grandfather No problems noted. Maternal Grandmother Glaucoma Paternal Grandfather No problems noted. Paternal Grandmother No problems noted. Social History Household Members: Spouse Housing: House Are you a primary personal carer to a significant other at home: No Do you presently have visiting nurse or other home services: No Patient Tobacco Use Status: Never used Tobacco e-Cigarette/Vaping Use: Never Used service: Yes Current occupational status: retired Cognitive needs: No Hearing needs: No Vision needs: Yes Questionnaire PHQ-9 Over the last 2 weeks, how often have you been bothered by any of the following problems? 1. Little interest or pleasure in doing things: more than half the days 2. Feeling down, depressed, or hopeless: more than half the days 3. Trouble falling or staying asleep, or sleeping too much: nearly every day 4. Feeling tired or having little energy: nearly every day 5. Poor appetite or overeating: more than half the days 6. Feeling bad about yourself - or that you are a failure or have let yourself or your family down: more than half the days 7. Trouble concentrating on things, such as reading the newspaper or watching television: more than half the days 8. Moving or speaking so slowly that other people could have noticed. Or the opposite - being so fidgety or restless that you have been moving around a lot more than usual: more than half the days 9. Thoughts that you would be better off or of hurting yourself in some way: not at all Total score: 18 Depression Screening Interpretation: Positive Depression Screening Follow-up: Existing condition and In treatment Depression Screening Done: Yes 15954 - PHQ-9 Billing: Yes Source: Developed by Drs. Eduar Martell, Britney Marie, Zi Thomas and colleagues, with an educational mae from [employer]. Thrive Questionnaire Date Thrive assessed: 02/14/23 I am a: Patient What is your living situation today?: I have a steady place to live Within the past 12 months, did the food you bought not last and you didn't have the money to get more?: Never true Within the past 12 months, did you worry whether your food would run out before you got money to buy more?: Never true Currently or been in a relationship where the following occur: no concerns reported AUDIT C Alcohol Use Questionnaire (AUDIT-C) 1. How often do you have a drink containing alcohol?: Never 2. How many drinks containing alcohol do you have on a typical day when you are drinking?: 1 or 2 3. How often do you have six or more drinks on one occasion?: Never Total Score: 0 SABI-7 AMB Questionnaire SABI-7 Date SABI - 7 assessed: 02/14/23 Feeling nervous, anxious, or on edge: 2 = More than half the days Not being able to stop or control worryin = More than half the days Worrying too much about different things: 2 = More than half the days Trouble relaxin = Nearly every day Being so restless that it is hard to sit still: 3 = Nearly every day Becoming easily annoyed or irritable: 2 = More than half the days Feeling afraid as if something awful might happen: 2 = More than half the days Total SABI-7 score (0-4 normal; 5-9 mild; 10-14 moderate; 15-21 severe): 16 Source: Developed by Drs. Eduar Martell, Britney Marie, Zi Thomas and colleagues, with an educational ame from [employer]. SABI-7 Assessment Billing SABI-7 Assessment Tool: SABI-7 Assessment 33719 Physical exam (Primary Care) Vital Signs: Last Vital Signs Pulse 112 H 02/14/23 13:30 BP 140/98 H 02/14/23 13:30 Pulse Ox 98 02/14/23 13:30 Oxygen Delivery Method Room Air 02/14/23 13:30 BMI result Body Mass Index 36.5 Tobacco/Smoking Status: Tobacco use Status Tobacco use date assessed 02/14/23 02/14/23 13:36 Patient Tobacco Use Status Never used Tobacco 02/14/23 13:30 e-Cigarette/Vaping Use Never Used 02/14/23 13:30 PHQ-9: PHQ-9 Score PHQ-9: Total score 18 02/14/23 13:36 Depression Screening Interpretation: Positive Depression Screening Follow-up: Existing condition and In treatment Thrive Assessment: Date of Thrive Assessment Date Thrive assessed 02/14/23 02/14/23 13:36 Currently or been in a relationship where the following occur: no concerns reported Const General: cooperative HENMT Ears: TM's normal bilaterally Mouth: Normal oral and palatal mucosa present Throat: Yes tonsils normal Neck Neck: Yes no lymphadenopathy Resp Auscultation: clear to auscultation bilaterally and wheezes (very faint to upper lobes bilat) Cardio Rate: regular rate Rhythm: regular rhythm Heart sounds: S1 normal heart sound present and S2 normal heart sound present Psych Appearance: grossly normal Mental Status: mental status grossly normal Speech and movement: Normal speech and movement present Affect: normal affect Attitude: cooperative Thought process: Normal thought process present Thought content: Normal thought content present Insight: Good insight present (Psych) Judgement: Good judgement present (Psych) Assessment and Plan Assessment & Plan (1) Viral illness: Code(s): B34.9 - Viral infection, unspecified Plan medications sent, pt will call the office if symptoms become worse Orders: Orders SARS-CoV2/FLU/RSV Today B34.9 - Viral infection, unspecified Medications: New benzonatate 100 mg PO BID 7 days PRN 14 caps 0RF cough prednisone 20 mg PO DAILY 5 days 5 tabs 0RF azithromycin For 250 mg dose pack: take 500 mg today (day 1), then 250 mg for 4 days (days 2-5) PO 6 tabs 0RF Coding Level of Care Code Est Pt Level 3 (58081) Diagnoses Viral illness B34.9 Additional Codes SABI-7 Assessment Billing - SABI-7 Assessment Tool: SABI-7 Assessment 65149 ([id number])
[2023-02-14 13:30] VITALS: BP 140/98; PULSE 112; O2SAT 98; BMI 36.5
== END 2023-02-14 16:00 | disposition home or self-care (01) ==
PROVIDERS: PCP Nurse Practitioner Family; Visit Provider Nurse Practitioner Family
DX: B34.9 Viral infection, unspecified (principal)
CPT/HCPCS: 99213

== ENCOUNTER 2023-02-14 16:18 | Outpatient (REF) | payer MEDICARE, SELFPAY | END 2023-02-14 16:19 | disposition home or self-care (01) | LOC: HO.HMGCLNP 16:18 | PROVIDERS: Visit Provider Nurse Practitioner Family | DX: B34.9 Viral infection, unspecified (principal); Z11.52 Encounter for screening for COVID-19; Z20.828 Contact with and (suspected) exposure to other viral communicable diseases | CPT/HCPCS: 0241U ==

== ENCOUNTER 2023-02-20 10:45 | Outpatient (REF) | payer MEDICARE, SELFPAY ==
--- NOTE | ~2023-02-20 | XR_ITS ---
EXAMINATION: XR CHEST CLINICAL INFORMATION: Viral infection COMPARISON: Chest radiograph 06/23/2015, MR chest 06/23/2017 TECHNIQUE: 2 views of the chest were obtained. FINDINGS: Heart and pulmonary vessels appear normal. 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 No infiltrates, effusions or lung masses are seen. XR/XR chest 2V IMPRESSION: No acute intrathoracic disease.
== END 2023-02-20 10:46 | disposition home or self-care (01) ==
LOC: HO.HMGCX 10:45
PROVIDERS: PCP Nurse Practitioner Family; Visit Provider Nurse Practitioner Family
DX: B34.9 Viral infection, unspecified (principal); R05.9 Cough, unspecified; R50.9 Fever, unspecified
CPT/HCPCS: 71046

== ENCOUNTER 2023-06-04 10:04 | Outpatient (AMB) | payer MEDICARE, SELFPAY ==
[2023-06-04 10:22] VITALS: BP 150/100; PULSE 100; TEMP 36.5; O2SAT 98; BMI 37.2
--- NOTE | 2023-06-04 10:22 | AM.OFFWIN_ITS ---
Intake Vital Signs 06/04/23 10:22 Height 5 ft 8 in Weight 245 lb BMI 37.2 BP 150/100 H Blood Pressure Location Lt brachial Position Sitting Pulse 100 Pulse Source Pulse Oximeter Temp 97.7 F Temp Source Temporal Artery Scan Pulse Oximetry (%) 98 Oxygen Delivery Method Room Air Intake Visit Reasons: EP Rt Knee Inflamation Intake Note: pt is here today for rt knee inflammation started 1 week ago Patient Tobacco Use Status: Never used Tobacco Allergies No Known Allergies [No Known Allergies*] Allergy (Verified 06/04/23 11:08) Medication List - Last Reconciled 06/04/23 by ALEX Ruggiero loratadine 10 mg PO DAILY multivitamin 1 tab PO DAILY omeprazole 1 cap PO DAILY prazosin 1 mg PO BEDTIME prednisone 20 mg PO BID rivaroxaban (Xarelto) 20 mg PO DAILY simvastatin 40 mg PO DAILY venlafaxine ER 225 mg PO DAILY Do you need a note to return to daycare/school/sports/work: No HPI HPI Comments History of Present Illness Details Patient is a 57-year-old male in today for sick visit. Patient states that 1 week prior he was moving around when he noticed a popping noise come from his right knee. Patient states he is able to ambulate in the affected limb, but that pain has gotten progressively worse over the past week even with the use of a right knee brace. Patient currently on Xarelto does not take NSAIDs at this time. Denies any tingling or numbness. Will obtain right knee x-ray. [facility] Medical History Cough Venous reflux Gout Internal hemorrhoids Factor 5 Leiden mutation, heterozygous Anxiety DVT (deep venous thrombosis) Erectile dysfunction Patellar dislocation Surgical History History of varicose veins History of left knee surgery Family History Father Cancer Diabetes mellitus Mother History of knee replacement HTN (hypertension) Melanoma Maternal Grandfather No problems noted. Maternal Grandmother Glaucoma Paternal Grandfather No problems noted. Paternal Grandmother No problems noted. Social History Household Members: Spouse Housing: House Are you a primary residential care facility manager to a significant other at home: No Do you presently have visiting nurse or other home services: No Patient Tobacco Use Status: Never used Tobacco e-Cigarette/Vaping Use: Never Used service: Yes Current occupational status: retired Cognitive needs: No Hearing needs: No Vision needs: Yes Review of Systems Const All systems reviewed & are unremarkable except as noted in HPI and below ENT Denies dizziness Card Denies chest pain and Denies dyspnea Resp Denies dyspnea Musc Reports arthralgias (Right knee), Denies numbness and Denies tingling Skin/Breast Denies change in pigmentation and Denies erythema Neuro Denies dizziness, Denies numbness and Denies tingling Physical Exam Vital Signs: Last Vital Signs Temp 97.7 F 06/04/23 10:22 Pulse 100 06/04/23 10:22 BP 150/100 H 06/04/23 10:22 Pulse Ox 98 06/04/23 10:22 Oxygen Delivery Method Room Air 06/04/23 10:22 BMI result Body Mass Index 37.2 Const General: cooperative, no acute distress and alert Orientation/consciousness: patient oriented x3 Limitations: no limitations HEENT Head: Yes normal to inspection Resp Auscultation: clear to auscultation bilaterally Cardio Rate: regular rate Rhythm: regular rhythm Heart sounds: S1 normal heart sound present and S2 normal heart sound present Neuro General: patient oriented x3 Extrem General: Yes normal to inspection and Yes full ROM Right lower extremity: full ROM, edema, no joint enlargement and knee Details: tenderness and crepitus Assessment & Plan Assessment & Plan (1) Right knee sprain: Comment: Right knee x-ray obtained. Does not look like fracture on initial reading. Patient states he has knee brace and crutches at home denied him at the appointment today. Patient has been reminded he should not take NSAIDs due to Xarelto. Will give patient prednisone for minor amount of edema, patient can utilize Tylenol. Should also utilize ice and rest the affected limb. Code(s): S83.91XA - Sprain of unspecified site of right knee, initial encounter Qualifiers: Encounter type: initial encounter Involved ligament of knee: unspecified ligament Qualified Code(s): S83.91XA - Sprain of unspecified site of right knee, initial encounter Plan: Take your medications as prescribed. If you were prescribed antibiotics today, it is important that you take your medication to their entirety, do not skip any doses, do not finish them early. Follow-up with your primary care provider this week. Return to the emergency department with new or worsening symptoms. Such as fevers, chills, chest pain, shortness of breath, nausea, vomiting, dizziness, headache, vision changes, lethargy In case of emergency call 911 Plan Patient has follow-up with PCP in 2 weeks Medications: New prednisone 20 mg PO BID 10 tabs 0RF Coding Level of Care Code Est Pt Level 3 (22718) Diagnoses Sprain of right knee, unspecified ligament, initial encounter S83.91XA Encounter type: initial encounter Involved ligament of knee: unspecified ligament Time Spent (min) 28
== END 2023-06-04 14:02 | disposition home or self-care (01) ==
PROVIDERS: PCP Nurse Practitioner Family; Visit Provider Nurse Practitioner Primary Care
DX: S83.91XA Sprain of unspecified site of right knee, initial encounter (principal)
CPT/HCPCS: 99213

== ENCOUNTER 2023-06-04 10:40 | Outpatient (REF) | payer MEDICARE, SELFPAY ==
--- NOTE | ~2023-06-04 | XR_ITS ---
EXAMINATION: XR KNEE, RIGHT CLINICAL INFORMATION: Pain in the right COMPARISON: None available. TECHNIQUE: Four views of the right knee. FINDINGS: There are degenerative changes present with narrowing in the medial compartment and some small marginal osteophytes arising from the medial femoral condyle. No chondrocalcinosis is seen. A small joint effusion is present. No fractures or dislocations. XR/XR knee RT 4V IMPRESSION: Degenerative changes in the medial compartment with small joint effusion.
== END 2023-06-04 10:41 | disposition home or self-care (01) ==
LOC: HO.HMGCX 10:40
PROVIDERS: PCP Nurse Practitioner Family; Visit Provider Nurse Practitioner Primary Care
DX: M25.461 Effusion, right knee (principal)
CPT/HCPCS: 73564

== ENCOUNTER 2023-06-17 09:54 | Outpatient (REF) | payer MEDICARE, SELFPAY ==
[2023-06-17 13:26] LABS: MANUAL DIFF FLAG NO
[2023-06-17 13:39] LABS: Basophils Absolute Auto 0.1 X10*3/uL (0.0-0.2); Basophils Percent Auto 0.9 % (0-2); Eosinophils Absolute Auto 0.1 X10*3/uL (0.0-0.4); Hematocrit 45.5 % (42.0-52.0); Hemoglobin 15.4 g/dl (14.0-18.0); Imm Gran Abs Auto 0.03 X10*3/uL (0.00-0.03); Imm Gran Pct Auto 0.5 % (0.0-0.4); Lymphocytes Absolute Auto 1.5 X10*3/uL (1.2-4.9); Lymphocytes Percent Auto 26.9 % (20-40); Mean Corpuscular HGB Conc 33.8 g/dl (31.0-36.0); Mean Corpuscular Volume 91.7 fL (80.0-98.0); Mean Platelet Volume 9.9 fL (9.4-12.4); Monocytes Absolute Auto 0.4 X10*3/uL (0.1-1.2); Monocytes Percent Auto 7.9 % (2-11); Neutrophils Absolute Auto 3.4 x10*3/uL (2.0-8.3); Neutrophils Percent Auto 61.8 % (45-73); Platelet Count 287 X10*3/uL (160-400); Red Blood Count 4.96 X10*6/uL (4.60-5.80); White Blood Count 5.5 X10*3/uL (4.8-10.8)
[2023-06-17 13:59] LABS: Estimated Average Glucose 114 mg/dL; Hemoglobin A1c % 5.6 % (<6.0)
[2023-06-17 14:06] LABS: Alanine Aminotransferase 34 U/L (0-40); Albumin Level 4.2 g/dL (3.5-5.0); Alkaline Phosphatase 68 U/L (39-117); Anion Gap 16 (12-20); Aspartate Amino Transferase 21 U/L (5-37); Bilirubin Total 0.8 mg/dL (0.0-1.0); Blood Urea Nitrogen 14 mg/dL (9-16); Carbon Dioxide 27 mmol/L (22-29); Chloride 102 mmol/L (96-108); Cholesterol 189 mg/dL (<200); Estimated Glomerular Filt Rate > 60; Glucose Fasting 112 mg/dL (60-99); HDL Cholesterol 63 mg/dL (>40); LDL Cholesterol Calculated 70 mg/dL (<100); Potassium 4.4 mmol/L (3.3-5.1); Sodium 141 mmol/L (135-145); Total Protein 7.3 g/dL (6.5-8.0); Triglycerides 283 mg/dL (<150)
[2023-06-17 14:22] LABS: TSH reflex Free T4 0.68 uIU/mL (0.32-4.0)
== END 2023-06-17 09:55 | disposition home or self-care (01) ==
LOC: HO.HMGCLDS 09:54
PROVIDERS: PCP Nurse Practitioner Family; Visit Provider Nurse Practitioner Family
DX: E78.5 Hyperlipidemia, unspecified (principal); R73.01 Impaired fasting glucose
CPT/HCPCS: 36415; 80053; 80061; 83036; 84443; 85025

== ENCOUNTER 2023-06-18 09:18 | Outpatient (AMB) | payer MEDICARE, SELFPAY ==
--- NOTE | 2023-06-18 09:48 | A.OFFPC_ITS ---
Vital Signs 06/18/23 09:51 06/18/23 10:15 Height 5 ft 8 in Weight 243 lb BMI 36.9 BP 140/100 H 134/86 Blood Pressure Location Rt brachial Position Sitting Pulse 93 Pulse Source Pulse Oximeter Pulse Oximetry (%) 98 Oxygen Delivery Method Room Air Intake Visit Reasons: 6 month fu Intake Note: Patient here to follow up on [place] for right knee swelling and review recent labs. Allergies No Known Allergies [No Known Allergies*] Allergy (Verified 06/18/23 09:52) Medication List - Last Reviewed 06/18/23 by TAISHA Taylor fluconazole 150 mg PO QWEEK loratadine 10 mg PO DAILY losartan 25 mg PO DAILY multivitamin 1 tab PO DAILY omeprazole 1 cap PO DAILY prazosin 1 mg PO BEDTIME rivaroxaban (Xarelto) 20 mg PO DAILY simvastatin 40 mg PO DAILY venlafaxine ER 225 mg PO DAILY Tobacco use date assessed: 02/14/23 Dental Screening Dental Screen Date: 02/14/23 HPI 6 month fu HPI Details HTN: Pt's blood pressure is elevated today. Will start losartan 25mg. Will have pt monitor his blood pressure at home and record readings. Dyslipide marco antonio: Pt's trigs were elevated. Pt has been more sedentary. Encouraged pt to go outside more with the nicer weather. Denies chest pain, shortness of breath, headache, dizziness, and blurred vision. [facility] Medical History Cough Venous reflux Gout Internal hemorrhoids Factor 5 Leiden mutation, heterozygous Anxiety DVT (deep venous thrombosis) Erectile dysfunction Patellar dislocation Surgical History History of varicose veins History of left knee surgery Family History Father Cancer Diabetes mellitus Mother History of knee replacement HTN (hypertension) Melanoma Maternal Grandfather No problems noted. Maternal Grandmother Glaucoma Paternal Grandfather No problems noted. Paternal Grandmother No problems noted. Social History Household Members: Spouse Housing: House Are you a primary career and technology education teacher to a significant other at home: No Do you presently have visiting nurse or other home services: No Patient Tobacco Use Status: Never used Tobacco e-Cigarette/Vaping Use: Never Used service: Yes Current occupational status: retired Cognitive needs: No Hearing needs: No Vision needs: Yes Questionnaire Thrive Questionnaire Date Thrive assessed: 02/14/23 I am a: Patient What is your living situation today?: I have a steady place to live Within the past 12 months, did the food you bought not last and you didn't have the money to get more?: Never true Within the past 12 months, did you worry whether your food would run out before you got money to buy more?: Never true THRIVE Score: 0 AUDIT C Alcohol Use Questionnaire (AUDIT-C) 1. How often do you have a drink containing alcohol?: Monthly or less 2. How many drinks containing alcohol do you have on a typical day when you are drinking?: 1 or 2 3. How often do you have six or more drinks on one occasion?: Never Total Score: 1 SABI-7 AMB Questionnaire SABI-7 Date SABI - 7 assessed: 02/14/23 Feeling nervous, anxious, or on edge: 2 = More than half the days Not being able to stop or control worryin = More than half the days Worrying too much about different things: 2 = More than half the days Trouble relaxin = More than half the days Being so restless that it is hard to sit still: 2 = More than half the days Becoming easily annoyed or irritable: 2 = More than half the days Feeling afraid as if something awful might happen: 2 = More than half the days Total SABI-7 score (0-4 normal; 5-9 mild; 10-14 moderate; 15-21 severe): 14 Source: Developed by Drs. Eduar Martell, Britney Marie, Zi Thomas and colleagues, with an educational mae from [employer]. Review of Systems Const Reports as per HPI Physical exam (Primary Care) Vital Signs: Last Vital Signs Pulse 93 06/18/23 09:51 BP 134/86 06/18/23 10:15 Pulse Ox 98 06/18/23 09:51 Oxygen Delivery Method Room Air 06/18/23 09:51 BMI result Body Mass Index 36.9 Tobacco/Smoking Status: Tobacco use Status Tobacco use date assessed 02/14/23 06/18/23 09:50 Patient Tobacco Use Status Never used Tobacco 06/18/23 09:50 e-Cigarette/Vaping Use Never Used 06/18/23 09:50 Thrive Assessment: Date of Thrive Assessment Date Thrive assessed 02/14/23 06/18/23 09:50 Const General: cooperative Nutritional Appearance: obese Orientation/consciousness: patient oriented x3 Resp Effort & Inspection: normal respiratory effort Auscultation: clear to auscultation bilaterally Cardio Other: ? faint systolic murmur Rate: regular rate Rhythm: regular rhythm Heart sounds: S1 normal heart sound present and S2 normal heart sound present Neuro General: patient oriented x3 Extrem Right lower extremity: edema (trace) Left lower extremity: edema (trace) Psych Appearance: grossly normal Mental Status: mental status grossly normal Speech and movement: Normal speech and movement present Affect: normal affect Attitude: cooperative Thought process: Normal thought process present Thought content: Normal thought content present Insight: Good insight present (Psych) Judgement: Good judgement present (Psych) Assessment and Plan Assessment & Plan (1) HTN (hypertension): Code(s): I10 - Essential (primary) hypertension Plan: Starting losartan (2) Dyslipidemia: Code(s): E78.5 - Hyperlipidemia, unspecified Plan: Continue to monitor Plan The patient agreed to the use of a biomedical service engineer for this encounter. Scribed for FABRICIO Arias by Gail Lebron biomedical service engineer, on 06/18/2023 at 10:00 EST. Medications: New losartan 25 mg PO DAILY 90 tabs 0RF Coding Level of Care Code Est Pt Level 3 (08387) Diagnoses HTN (hypertension) I10 Dyslipidemia E78.5
[2023-06-18 09:51] VITALS: BP 140/100; PULSE 93; O2SAT 98; BMI 36.9
[2023-06-18 10:15] VITALS: BP 134/86
== END 2023-06-18 11:23 | disposition home or self-care (01) ==
PROVIDERS: PCP Nurse Practitioner Family; Visit Provider Nurse Practitioner Family
DX: I10 Essential (primary) hypertension (principal); E78.5 Hyperlipidemia, unspecified
CPT/HCPCS: 99214

== ENCOUNTER 2023-07-30 17:15 | Outpatient (REF) | payer MEDICARE, SELFPAY ==
--- NOTE | ~2023-07-30 | MR_ITS ---
EXAMINATION: MR KNEE WITHOUT CONTRAST, RIGHT CLINICAL INFORMATION: Right knee pain and swelling. COMPARISON: Right knee radiographs dated 06/04/2023. TECHNIQUE: MRI of the knee without contrast was performed using routine sequences on a high-field scanner. FINDINGS: MENISCI: Medial Meniscus: Nondisplaced oblique inner margin/tibial articular surface tear of the meniscal body with extension to the inner margin and femoral articular surface of the posterior horn and root. Significant attenuation and heterogeneity of the posterior root consistent with complex tearing. Medial extrusion of the meniscal body. Lateral Meniscus: Focal inner margin fraying/tearing of the meniscal body. LIGAMENTS: Cruciate: Intact Collateral: Edema along the posterior and distal aspect of the medial collateral ligament consistent with a grade 1 sprain. Intact fibular collateral ligament. EXTENSOR MECHANISM: Intact quadriceps tendon. Mild proximal patellar tendinosis. Normal patellofemoral alignment. TT TG distance within normal limits. No patella james. ARTICULAR CARTILAGE/BONE: Patellofemoral Compartment: Mild medial trochlea articular cartilage signal heterogeneity. Inferior patellar signal heterogeneity. Tiny marginal osteophytes. Medial Compartment: Weightbearing articular cartilage thinning with signal heterogeneity and surface regularly. Tiny marginal osteophytes. Lateral Compartment: Posterior weightbearing lateral femoral condyle articular cartilage defect measuring up to 0.7 cm in AP dimension as well as a posterior lateral tibial plateau full-thickness articular cartilage defect measuring up to 0.8 cm in AP dimension. Tiny marginal osteophytes. JOINT FLUID AND BURSAE: Small joint effusion. MR/MR knee RT wo con IMPRESSION: 1. Nondisplaced oblique inner margin/tibial articular surface tear of the medial meniscal body with extension to the inner margin and femoral articular surface of the posterior horn and root. Complex tearing of the posterior root with medial extrusion of the meniscal body. 2. Focal inner margin fraying/tearing of the lateral meniscal body. 3. Grade 1 sprain of the medial collateral ligament. 4. Mild proximal patellar tendinosis. Normal patellofemoral alignment. 5. Mild tricompartmental osteoarthritis. Small joint effusion.
== END 2023-07-30 17:16 | disposition home or self-care (01) ==
LOC: HO.MRI 17:15
PROVIDERS: PCP Nurse Practitioner Family; Visit Provider Nurse Practitioner Family
DX: M25.561 Pain in right knee (principal); R93.6 Abnormal findings on diagnostic imaging of limbs
CPT/HCPCS: 73721

== ENCOUNTER 2023-08-23 18:32 | Emergency (ER) | payer MEDICARE, OTHER, SELFPAY ==
--- NOTE | ~2023-08-23 | CT_ITS ---
EXAMINATION: CT HEAD WITHOUT CONTRAST CLINICAL INFORMATION: Headache. Injury 2 months ago. On Xarelto COMPARISON: None. TECHNIQUE: Contiguous axial imaging was performed from the skull base to vertex without intravenous administration of contrast. Coronal and sagittal reformatted images are performed at the CT scanner. [This CT examination was performed using dose optimization techniques as appropriate, variously including the following: *Automated exposure control *Adjustment of mA and/or kV according to patient size (this includes techniques or standardized protocols for targeted exams where dose is matched to indication/reason for exam; i.e. extremities or head) *Use of iterative reconstruction technique] DLP: 779 mGy-cm. FINDINGS: There is no evidence of acute intracranial hemorrhage or territorial infarction. No abnormal mass-effect or midline shift is seen. Reed to white matter differentiation is well preserved. No extra-axial fluid collections are identified. The ventricles are normal in size. There is no abnormal attenuation within the brain parenchyma. There is no osseous abnormality. The mastoid air cells and visualized portions of the paranasal sinuses are well-aerated. CT/CT head/brain wo IV con IMPRESSION: No acute intracranial pathology.
[2023-08-23 19:10] VITALS: BP 120/78; PULSE 106; RESP 16; TEMP 36.6; O2SAT 95; BMI 32.0
--- NOTE | 2023-08-23 19:10 | ED_ITS ---
HPI - Head Injury General Chief complaint: Head Injury Stated complaint: head injury Time Seen by Provider: 08/23/23 21:58 History of Present Illness HPI Narrative: 57-year-old male who has a history of TBI, factor 5 Leiden, DVT, presents for persistent headaches since June. Patient states at that time he got out of his couch, felt lightheaded and dizzy and fell, striking his head on a table. He reports LOC at that time but states gained consciousness shortly after and resumed his daily activities. He did not seek medical attention and waited several weeks before he saw his PCP because since the incident he had persistent headaches. Patient states he has persistent headaches since June. The pain is diffuse and tends to be migratory. It is relief with Tylenol. He denies any fevers chills nausea vomiting. He denies any repeat again, he last saw his PCP 1 month ago. He has not tried any additional medications for this. No neck or back Pain. Patient has otherwise been feeling well. Related Data Home Medications ?Medication ?Instructions ?Recorded ?Confirmed multivitamin 1 tab PO DAILY 02/16/21 06/18/23 rivaroxaban 20 mg tablet (Xarelto) 20 mg PO DAILY 06/15/21 06/18/23 simvastatin 80 mg tablet 40 mg PO DAILY 06/15/21 06/18/23 loratadine 10 mg tablet 10 mg PO DAILY 08/17/21 06/18/23 omeprazole 20 mg capsule,delayed 1 cap PO DAILY 08/17/21 06/18/23 release prazosin 1 mg capsule 1 mg PO BEDTIME 12/19/22 06/18/23 venlafaxine 150 mg 225 mg PO DAILY 12/19/22 06/18/23 capsule,extended release 24 hr Previous Rx's ?Medication ?Instructions ?Recorded losartan 25 mg tablet 25 mg PO DAILY #90 tabs 06/18/23 mbqwqnnkjf-owehqayjdtbhh-oftpkvte 1 cap PO Q8H PRN headache #10 caps 08/23/23 50 mg-300 mg-40 mg capsule (Fioricet) Allergies Allergy/AdvReac Type Severity Reaction Status Date / Time bupropion AdvReac Intermediate Anxiety Verified 08/23/23 19:11 Review of Systems 2 Constitutional: Constitutional: Denies chills, Denies fever(s) and Reports headache(s) Eyes: Eyes: Denies change in vision and Denies other (No redness.) ENT: Reports headache(s), Denies nasal congestion, Denies nasal discharge, Denies neck pain and Denies sore throat Cardiovascular: Cardiovascular: Denies chest pain, Denies palpitations, Denies dyspnea, Denies dyspnea on exertion and Denies orthopnea Respiratory: Respiratory: Denies cough, Denies dyspnea and Denies dyspnea on exertion Gastrointestinal: Gastrointestinal: Denies abdominal pain, Denies melena, Denies hematochezia, Denies diarrhea, Denies nausea and Denies vomiting Genitourinary: Genitourinary: Denies difficulty urinating, Denies dysuria and Denies urinary urgency Musculoskeletal: Musculoskeletal: Denies back pain, Denies muscle weakness, Denies neck pain and Denies numbness Integumentary/Breasts: Skin/Breast: Denies rash Neurologic: Reports headache(s), Denies focal weakness and Denies numbness Psychiatric: Psychiatric: Denies depression Endocrine: Endocrine: Denies palpitations PMFSH Past Medical History Medical History Cough Venous reflux Gout Internal hemorrhoids Factor 5 Leiden mutation, heterozygous Anxiety DVT (deep venous thrombosis) Erectile dysfunction Patellar dislocation Surgical History History of varicose veins History of left knee surgery Family History Family History Father Cancer Diabetes mellitus Mother History of knee replacement HTN (hypertension) Melanoma Maternal Grandfather No problems noted. Maternal Grandmother Glaucoma Paternal Grandfather No problems noted. Paternal Grandmother No problems noted. Social History Social History Household Members: Spouse Housing: House Are you a primary director of managed care to a significant other at home: No Do you presently have visiting nurse or other home services: No Patient Tobacco Use Status: Never used Tobacco e-Cigarette/Vaping Use: Never Used Advance Directives: No Advance Directives Information Provided: No service: Yes Current occupational status: retired Cognitive needs: No Hearing needs: No Vision needs: Yes Physical Exam 2 Vital Signs: Vital Signs: Last Vital Signs Temp 98.7 F 08/23/23 23:04 Pulse 89 08/23/23 23:04 Resp 16 08/23/23 23:04 BP 129/84 08/23/23 23:04 Pulse Ox 97 08/23/23 23:04 O2 Del Method Room Air 08/23/23 23:04 BMI result Body Mass Index 32.0 Const: General: cooperative, alert, awake and Physically active O rientation/consciousness: patient oriented x3 HEENT: Other: Pupils are equal round and reactive to light. There is no nystagmus. Auditory canals are patent. Oropharynx is moist. There is no tongue elevation or edema. Neck: Other: No Brudzinski. Resp: Effort & Inspection: normal respiratory effort Auscultation: clear to auscultation bilaterally Cardio: Rate: regular rate Rhythm: regular rhythm Neuro: General: patient oriented x3 and CN's II-XI intact bilaterally Psych: Appearance: grossly normal Course Course Course Narrative: This is an RME performed by Lauren Oleary, HOTEL RESERVATION AGENT: Additional HPI, ROS, PE not included below will be deferred to primary provider. Patient is a 57-year-old male who presents emergency department for evaluation, reports a head injury at the end of June 2023 with resultant syncope. Reports never having evaluation. Reports a chronic headache, blurry vision, unrelieved with Tylenol, fatigue, tingling bilateral hands and feet. Take Xarelto, hx DVT and Factor % leiden mutation. Contacted his primary care doctor and was advised to come to the emergency department immediately for CT imaging. Has no focal neurological deficits, steady gait Medical Decision Making Medical Decision Making MDM Narrative: 57-year-old male with a history of TBI, hypertension, DVT, factor 5, on DOAC presents for evaluation of persistent headaches. Patient states he has had a long history of TBI from years ago as well as repeated head injury. Patient states his most recent injury was at the end of June where he got out of a chair, lost his balance, felt dizzy and struck his head. He reports LOC at that time and was ultimately evaluated by his PCP several weeks later. Patient states since that time he has had daily headaches. Constant in nature and diffuse. The pain is migratory. He takes Tylenol that offer some relief. It does not completely go away no nausea or vomiting. No neck or back pain. No fevers or chills. Currently the pain is to the left side of his head. He reports that this is the same headache as previous. He denies any history of migraines. He has not seen any specialist or had any advanced imaging. Patient is hemodynamically stable and afebrile. He has not orthostatic. Labs are within normal ranges, CT of the brain is without any acute process. I have had extensive discussion with the patient regarding current and follow-up treatment. I have offered the patient IV medications however he is driving and does not have a ride and has declined at this time. Patient would like to have a trial of medications sent to his pharmacy. He feels comfortable with discharge plan home he is neurologically intact. Prescription monitoring program does not reveal any controlled medications. Differential Diagnosis Differential Diagnoses: The differential diagnosis associated with the presentation includes TBI Concussion Migraine headache Chronic pain Intracranial bleed Admission/Observation Consideration of admission/observation: Escalation of care including admission/observation considered Lab Data MDM Lab Attestation statement: I reviewed the patient's lab results. 08/23/23 19:29 08/23/23 19:29 Labs: Lab Results 08/23/23 Range/Units 19:29 WBC 5.5 (4.8-10.8) X10*3/uL RBC 4.33 L (4.60-5.80) X10*6/uL Hgb 13.8 L (14.0-18.0) g/dl Hct 38.8 L (42.0-52.0) % MCV 89.6 (80.0-98.0) fL MCH 31.9 (27.0-33.0) pg MCHC 35.6 (31.0-36.0) g/dl RDW 12.9 (11.0-16.0) % Plt Count 255 (160-400) X10*3/uL MPV 9.1 L (9.4-12.4) fL Immature Gran % (Auto) 0.4 (0.0-0.4) % Neut % (Auto) 57.1 (45-73) % Lymph % (Auto) 28.8 (20-40) % Coleman % (Auto) 9.9 (2-11) % Eos % (Auto) 3.1 (0-4) % Baso % (Auto) 0.7 (0-2) % Lymph # (Auto) 1.6 (1.2-4.9) X10*3/uL Coleman # (Auto) 0.5 (0.1-1.2) X10*3/uL Eos # (Auto) 0.2 (0.0-0.4) X10*3/uL Baso # (Auto) 0.0 (0.0-0.2) X10*3/uL Abs Immat Gran (auto) 0.02 (0.00-0.03) X10*3/uL Absolute Neuts (auto) 3.1 (2.0-8.3) x10*3/uL Absolute Nucleated RBC 0.000 (0.0-0.012) X10*3/uL Nucleated RBC % (auto) 0.0 (0.0-0.2) /100WBC PT 13.6 H (11.1-13.3) SEC INR 1.1 (0.9-1.1) Sodium 140 (135-145) mmol/L Potassium 4.3 (3.3-5.1) mmol/L Chloride 107 (96-108) mmol/L Carbon Dioxide 21 L (22-29) mmol/L Anion Gap 16 (12-20) BUN 18 H (9-16) mg/dL Creatinine 0.92 (0.5-1.4) mg/dL Estim Creat Clear Calc 113.8 Estimated GFR > 60 Random Glucose 106 (60-115) mg/dL Calcium 9.6 (8.4-10.2) mg/dL Total Bilirubin 0.3 (0.0-1.0) mg/dL AST 22 (5-37) U/L ALT 29 (0-40) U/L Alkaline Phosphatase 67 (39-117) U/L Total Protein 7.1 (6.5-8.0) g/dL Albumin 4.2 (3.5-5.0) g/dL Radiology Impression Discussion of test interpretation with radiology: I have reviewed the radiologist's reading. Radiologist Impression: [address] [address] [address] Scan Report Signed Patient: Amadou Colon MR#: [id number] : 1965 Acct:[id number] Age/Sex: 57 / M ADM Date: 08/23/23 Loc: .ED Attending Dr: Ordering Physician: Tamiko Oleary CNP Date of Service: 08/23/23 Procedure(s): CT head/brain wo IV con Accession Number(s): [id number] cc: Tamiko Oleary CNP; [facility] EXAMINATION: CT HEAD WITHOUT CONTRAST CLINICAL INFORMATION: Headache. Injury 2 months ago. On Xarelto COMPARISON: None. TECHNIQUE: Contiguous axial imaging was performed from the skull base to vertex without intravenous administration of contrast. Coronal and sagittal reformatted images are performed at the CT scanner. [This CT examination was performed using dose optimization techniques as appropriate, variously including the following: *Automated exposure control *Adjustment of mA and/or kV according to patient size (this includes techniques or standardized protocols for targeted exams where dose is matched to indication/reason for exam; i.e. extremities or head) *Use of iterative reconstruction technique] DLP: 779 mGy-cm. FINDINGS: There is no evidence of acute intracranial hemorrhage or territorial infarction. No abnormal mass-effect or midline shift is seen. Reed to white matter differentiation is well preserved. No extra-axial fluid collections are identified. The ventricles are normal in size. There is no abnormal attenuation within the brain parenchyma. There is no osseous abnormality. The mastoid air cells and visualized portions of the paranasal sinuses are well-aerated. CT/CT head/brain wo IV con IMPRESSION: No acute intracranial pathology. Dictated By: Skyler Otero MD Signed By: <Electronically signed by Skyler Otero MD in OV> 08/23/232224 DD/ 23 TD/TT: Candy Wrapping Machine Operator: ALLAN External Record Review External record reviewed: Inpatient record Chronic Conditions Patient?s care impacted by: Hypertension Discharge Plan Discharge Clinical Impression: Headache Qualifiers: Headache type: unspecified Headache chronicity pattern: chronic headache I ntractability: not intractable Qualified Code(s): R51.9 - Headache, unspecified Patient Disposition: Home, Self-Care Instructions: Chronic Post Traumatic Headache (ED) Additional Instructions: Rest. Avoid strenuous activity. Fioricet as directed. Do not drive, operate heavy machinery or drink alcohol while taking this medication as it may make you drowsy. Follow-up with neurology referral. Follow-up with your primary care provider. Call this week to schedule a follow- up appointment. Return to the emergency department if you have any worsening of symptoms, or any concerns. Get well soon! Prescriptions: New dikdjapvfu-toyufptnpnlgl-zqqs [Fioricet] 50-300-40 mg capsule 1 cap PO Q8H PRN (Reason: headache) Qty: 10 0RF Discontinued fluconazole 150 mg tablet 150 mg PO QWEEK No Action multivitamin Tablet 1 tab PO DAILY omeprazole 20 mg capsule,delayed release(DR/EC) 1 cap PO DAILY loratadine 10 mg Tablet 10 mg PO DAILY venlafaxine 150 mg capsule,extended release 24hr 225 mg PO DAILY prazosin 1 mg capsule 1 mg PO BEDTIME losartan 25 mg tablet 25 mg PO DAILY Qty: 90 0RF simvastatin 80 mg tablet 40 mg PO DAILY Xarelto 20 mg tablet 20 mg PO DAILY Rx Instructions: must administer with evening meal Referrals: Sari De Oliveira MD [Physician] - 1 week (Persistent headaches) Interventions: ED Discharge Assessment Last Done: 08/23/23 23:04 Discharge Date/Time: 08/23/23 23:04 Print Language: Guatemalan
[2023-08-23 19:35] LABS: MANUAL DIFF FLAG NO
[2023-08-23 19:38] LABS: Basophils Percent Auto 0.7 % (0-2); Eosinophils Absolute Auto 0.2 X10*3/uL (0.0-0.4); Eosinophils Percent Auto 3.1 % (0-4); Hematocrit 38.8 % (42.0-52.0); Hemoglobin 13.8 g/dl (14.0-18.0); Imm Gran Abs Auto 0.02 X10*3/uL (0.00-0.03); Imm Gran Pct Auto 0.4 % (0.0-0.4); Lymphocytes Absolute Auto 1.6 X10*3/uL (1.2-4.9); Lymphocytes Percent Auto 28.8 % (20-40); Mean Corpuscular HGB Conc 35.6 g/dl (31.0-36.0); Mean Corpuscular Hemoglobin 31.9 pg (27.0-33.0); Mean Corpuscular Volume 89.6 fL (80.0-98.0); Mean Platelet Volume 9.1 fL (9.4-12.4); Monocytes Absolute Auto 0.5 X10*3/uL (0.1-1.2); Monocytes Percent Auto 9.9 % (2-11); Neutrophils Absolute Auto 3.1 x10*3/uL (2.0-8.3); Neutrophils Percent Auto 57.1 % (45-73); Platelet Count 255 X10*3/uL (160-400); Red Blood Count 4.33 X10*6/uL (4.60-5.80); Red Cell Distribution Width 12.9 % (11.0-16.0); White Blood Count 5.5 X10*3/uL (4.8-10.8)
[2023-08-23 19:41] LABS: INTERNATIONAL NORM RATIO 1.1 (0.9-1.1); Prothrombin Time 13.6 SEC (11.1-13.3)
[2023-08-23 19:49] LABS: Alanine Aminotransferase 29 U/L (0-40); Albumin Level 4.2 g/dL (3.5-5.0); Alkaline Phosphatase 67 U/L (39-117); Anion Gap 16 (12-20); Aspartate Amino Transferase 22 U/L (5-37); Bilirubin Total 0.3 mg/dL (0.0-1.0); Blood Urea Nitrogen 18 mg/dL (9-16); Calcium 9.6 mg/dL (8.4-10.2); Carbon Dioxide 21 mmol/L (22-29); Chloride 107 mmol/L (96-108); Creatinine Clr Calc Pharmacy 113.8; Estimated Glomerular Filt Rate > 60; Glucose Random 106 mg/dL (60-115); Potassium 4.3 mmol/L (3.3-5.1); Sodium 140 mmol/L (135-145); Total Protein 7.1 g/dL (6.5-8.0)
[2023-08-23 22:00] VITALS: BP 129/84; PULSE 89; RESP 16; TEMP 37.1; O2SAT 97
[2023-08-23 23:04] VITALS: BP 129/84; PULSE 89; RESP 16; TEMP 37.1; O2SAT 97
== END 2023-08-23 23:04 | disposition home or self-care (01) ==
PROVIDERS: Nurse Practitioner Family; Emergency Provider Emergency Medicine; PCP Nurse Practitioner Family
DX: R51.9 Headache, unspecified (principal); I10 Essential (primary) hypertension; E78.5 Hyperlipidemia, unspecified; Z86.718 Personal history of other venous thrombosis and embolism; Z79.02 Long term (current) use of antithrombotics/antiplatelets; Z79.01 Long term (current) use of anticoagulants; Z79.899 Other long term (current) drug therapy
CPT/HCPCS: 36415; 70450; 80053; 85025; 85610; 99283; 99284

== ENCOUNTER 2023-09-02 14:16 | Outpatient (AMB) | payer MEDICARE, OTHER, SELFPAY ==
[2023-09-02 14:30] VITALS: BP 126/82; PULSE 110; O2SAT 97; BMI 32.2
--- NOTE | 2023-09-02 14:30 | A.OFFPC_ITS ---
Vital Signs 09/02/23 14:30 Height 6 ft 1 in Weight 244 lb 2 oz BMI 32.2 BP 126/82 Blood Pressure Location Rt brachial Position Sitting Pulse 110 H Pulse Source Pulse Oximeter Pulse Oximetry (%) 97 Oxygen Delivery Method Room Air Intake Visit Reasons: Headache Intake Note: Pt is here today for an ED follow up for headaches. Allergies bupropion Adverse Reaction (Intermediate, Verified 09/02/23 14:33) Anxiety Tobacco use date assessed: 09/02/23 Dental Screening Dental Screen Date: 09/02/23 Did you have a dental visit in the last 12 months?: Yes Did you have a dental problem in the last 6 months where you did not have access to dental care?: No Was dental information given to patient?: Patient has dentist HPI Headache HPI Details Pt was seen in the ER on 08/22 c/o headache, fall hitting his head with LOC approx [address] showed no acute intracranial pathology. Pt was d/c with fioricet. Pt reports ongoing right-sided headache. He reports that these start in his syn[employer] and he describes symptoms moving superiorly and posteriorly. He reports that this is intermittent but daily. He has hit his head multiple times over the years. Pt does report photophobia. Pt has been taking between 650-1000mg of tylenol which helps somewhat. He has not used fioricet much. Will send sumatriptan and refer to neurology. Denies fever, chills, and dizziness. [facility] Medical History Cough Venous reflux Gout Internal hemorrhoids Factor 5 Leiden mutation, heterozygous Anxiety DVT (deep venous thrombosis) Erectile dysfunction Patellar dislocation Surgical History History of varicose veins History of left knee surgery Family History Father Cancer Diabetes mellitus Mother History of knee replacement HTN (hypertension) Melanoma Maternal Grandfather No problems noted. Maternal Grandmother Glaucoma Paternal Grandfather No problems noted. Paternal Grandmother No problems noted. Social History Household Members: Spouse Housing: House Are you a primary home care attendant to a significant other at home: No Do you presently have visiting nurse or other home services: No Patient Tobacco Use Status: Never used Tobacco e-Cigarette/Vaping Use: Never Used service: Yes Current occupational status: retired Cognitive needs: No Hearing needs: No Vision needs: Yes Questionnaire PHQ-9 Over the last 2 weeks, how often have you been bothered by any of the following problems? 21294 - PHQ-9 Billing: Patient declined-do not bill Source: Developed by Drs. Eduar Martell, Britney Marie, Zi Thomas and colleagues, with an educational mae from [employer]. Thrive Questionnaire Date Thrive assessed: 09/02/23 I am a: Patient What is your living situation today?: I have a steady place to live Within the past 12 months, did the food you bought not last and you didn't have the money to get more?: Never true Within the past 12 months, did you worry whether your food would run out before you got money to buy more?: Never true Do you have trouble paying for medicines?: No Do you have trouble getting transportation to medical appointments?: No Do you have trouble paying your heating and electricity bill?: No Do you have trouble taking care of your child, family member or friend?: No Do you have trouble with day-to-day activities such as bathing, preparing meals, shopping, managing finances, etc.?: No Are you currently unemployed and looking for a job?: No Are you interested in more education?: No Please select the resources that you would like help with: None Currently or been in a relationship where the following occur: No concerns reported THRIVE Score: 0 AUDIT C Alcohol Use Questionnaire (AUDIT-C) 1. How often do you have a drink containing alcohol?: Monthly or less 2. How many drinks containing alcohol do you have on a typical day when you are drinking?: 1 or 2 3. How often do you have six or more drinks on one occasion?: Never Total Score: 1 Score Reviewed/Action Taken: Yes SABI-7 AMB Questionnaire SABI-7 Date SABI - 7 assessed: 09/02/23 Feeling nervous, anxious, or on edge: 2 = More than half the days Not being able to stop or control worryin = More than half the days Worrying too much about different things: 2 = More than half the days Trouble relaxin = More than half the days Being so restless that it is hard to sit still: 2 = More than half the days Becoming easily annoyed or irritable: 2 = More than half the days Feeling afraid as if something awful might happen: 2 = More than half the days Total SABI-7 score (0-4 normal; 5-9 mild; 10-14 moderate; 15-21 severe): 14 Source: Developed by Drs. Eduar Martell, Britney Marie, Zi Thomas and colleagues, with an educational mae from [employer]. SABI-7 Assessment Billing SABI-7 Assessment Tool: SABI-7 Assessment 84313 Physical exam (Primary Care) Vital Signs: Last Vital Signs Pulse 110 H 09/02/23 14:30 BP 126/82 09/02/23 14:30 Pulse Ox 97 09/02/23 14:30 Oxygen Delivery Method Room Air 09/02/23 14:30 BMI result Body Mass Index 32.2 Tobacco/Smoking Status: Tobacco use Status Tobacco use date assessed 09/02/23 09/02/23 14:34 Patient Tobacco Use Status Never used Tobacco 09/02/23 14:34 e-Cigarette/Vaping Use Never Used 09/02/23 14:34 Thrive Assessment: Date of Thrive Assessment Date Thrive assessed 09/02/23 09/02/23 14:34 Currently or been in a relationship where the following occur: No concerns reported Const General: cooperative Orientation/consciousness: patient oriented x3 Resp Effort & Inspection: normal respiratory effort Auscultation: clear to auscultation bilaterally Cardio Rate: tachycardic Rhythm: regular rhythm Heart sounds: S1 normal heart sound present and S2 normal heart sound present Neuro Other: no nystagmus with 6 cardinal gazes, arm pull test negative, finger to thumb intact, heel to solares intact General: patient oriented x3 and CN's II-XI intact bilaterally Coordination: [id number] test normal Romberg Test: Negative Psych Appearance: grossly normal Mental Status: mental status grossly normal Speech and movement: Normal speech and movement present Affect: normal affect Attitude: cooperative Thought process: Normal thought process present Thought content: Normal thought content present Insight: Good insight present (Psych) Judgement: Good judgement present (Psych) Assessment and Plan Assessment & Plan (1) Migraine: Code(s): G43.909 - Migraine, unspecified, not intractable, without status migrainosus Plan: Referred to neurology, sumatriptan sent (2) Tachycardia: Code(s): R00.0 - Tachycardia, unspecified Plan: EKG done in office, sinus tach (? dehydration component, outside before coming to today's appt), encouraged to push fluids Plan The patient agreed to the use of a medical billing instructor for this encounter. Scribed for ALEX Arias-STEVE by Gail Lebron medical billing instructor, on 09/02/2023 at 15:10 EST. Orders: Orders AMB EKG-In Office Today R00.0 - Tachycardia, unspecified Referrals Neurology Referral G43.909 - Migraine, unspecified, not intractable, without status migrainosus Medications: New sumatriptan succinate take 1 tab at onset of headache; if no relief may repeat 1 tab after at least 2 hrs; max = 4 tabs/24 hr orally once PRN; 10 tabs 0RF migraine headache Refilled losartan 25 mg PO DAILY 90 tabs 0RF Coding Level of Care Code Est Pt Level 3 (34259) Diagnoses Migraine G43.909 Tachycardia R00.0 Additional Codes SABI-7 Assessment Billing - SABI-7 Assessment Tool: SABI-7 Assessment 07089 ([id number])
== END 2023-09-02 15:45 | disposition home or self-care (01) ==
PROVIDERS: PCP Nurse Practitioner Family; Visit Provider Nurse Practitioner Family
DX: G43.909 Migraine, unspecified, not intractable, without status migrainosus (principal); R00.0 Tachycardia, unspecified
CPT/HCPCS: 93000; 99213

== ENCOUNTER 2023-10-15 12:23 | Outpatient (REF) | payer MEDICARE, SELFPAY ==
[2023-10-15 15:05] LABS: Erythrocyte Sedimentation Rate 7 MM/HR (0-15)
[2023-10-16 04:39] LABS: Syphilis Screen Nonreactive (Nonreactive)
[2023-10-16 04:41] LABS: HIV Num 1 1.03 S/CO (0.00-0.99)
[2023-10-16 05:38] LABS: HIV AB/AG Reactive (Nonreactive); HIV Num 2 1.05 S/CO; HIV Num 3 1.18 S/CO
[2023-10-16 10:14] LABS: Lyme Abs Screen <0.90 index
[2023-10-18 19:08] LABS: HIV 1 Antibody NEGATIVE (NEGATIVE); HIV 2 Antibody NEGATIVE (NEGATIVE)
== END 2023-10-15 12:24 | disposition home or self-care (01) ==
LOC: HO.LAB 12:23
PROVIDERS: PCP Nurse Practitioner Family; Visit Provider Psychiatry & Neurology Neurology
DX: R51.9 Headache, unspecified (principal)
CPT/HCPCS: 36415; 85652; 86617; 86618; 86701; 86702; 86780; 87389

== ENCOUNTER 2024-03-12 14:42 | Outpatient (AMB) | payer MEDICARE, SELFPAY ==
[2024-03-12 14:48] VITALS: BP 138/86; PULSE 98; RESP 16; TEMP 36.6; O2SAT 97; BMI 33.0
--- NOTE | 2024-03-12 14:48 | A.OFFPC_ITS ---
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: No Allergies bupropion Adverse Reaction (Intermediate, Verified 03/12/24 14:50) Anxiety Medication List - Last Reconciled 03/12/24 by ALEX Garcia- loratadine 10 mg PO DAILY losartan 25 mg PO DAILY multivitamin 1 tab PO DAILY omeprazole 1 cap PO DAILY prazosin 1 mg PO BEDTIME rivaroxaban (Xarelto) 20 mg PO DAILY simvastatin 40 mg PO DAILY venlafaxine ER 225 mg PO DAILY Tobacco use date assessed: 03/12/24 Dental Screening Dental Screen Date: 03/12/24 Did you have a dental visit in the last 12 months?: Yes Did you have a dental problem in the last 6 months where you did not have access to dental care?: No Was dental information given to patient?: Patient has dentist HPI PE HPI Details History of Present Illness The patient is a 58-year-old male presenting with gastrointestinal symptoms alongside a routine physical examination. His primary issue is frequent diarrhea, occurring up to six times daily, persisting over several months. Each bowel movement is characterized by diarrhea, without associated abdominal pain or hematochezia. The patient denies nausea, vomiting, or changes in stool color, and reports no symptomatic aggravating or alleviating factors. colon screen is up to date. He has a past medical history significant for migraines, managed by a neurology specialist. The patient also has a psychiatric history, attended by both a psychiatrist and therapist, marked by anxiety and depression. Recently, he underwent a meniscal repair surgery in January 2024. He expresses concern about incomplete bladder emptying but prefers to avoid a digital rectal exam during this visit. He is aware of the need to monitor for worsening symptoms and denies any suicidal or homicidal ideation. Health Maintenance - Screened for incomplete bladder emptyi ng with plans for a PSA test. Social History Review of Systems - Gastrointestinal: Reports frequent reynaldo rrhea, up to six times a day, ongoing for months. - Constitutional: Denies fever, chills. - Respiratory: Denies shortness of breat h. - Cardiovascular: Denies chest pain. - Gastrointestinal: Denies nausea, vomit ing, blood in stool, and abdominal pain. - Genitourinary: Reports incomplete blad trisha emptying but denies a digital rectal exam at present. - Psychiatric: Denies suicidal ideation, homicidal ideation. Physical Exam General: Cooperative, healthy appearing, comfortable, no acute distress and well developed, obese Orientation: Patient oriented x3 Limitations: No limitations Head: Normal to inspection Ears: Hearing grossly normal bilaterally Nose: Normal external nose present Face and sinus: Normal facial exam Eyes: Appearance normal, both eyes and all related structures Neck: Normal visual inspection and Yes full ROM Respiratory: Normal respiratory effort and able to speak in complete sentences. Clear to auscultation bilaterally Cardiovascular: Regular rate and rhythm. Normal S1 and S2 GI: Normal to inspection. Soft to palpation and nontender. Skin: No rashes or lesions noted Neuro: Patient oriented x3 Extremities: Normal to inspection Results Plan - Conduct PSA testing to evaluate prosta te health due to reported incomplete bladder emptying. - Refer to gastroenterology for further evaluation of chronic diarrhea with consideration of an irritable bowel syndrome IBS) component. - Obtain stool studies to further invest igate the cause of frequent diarrhea. - Ensure continuity of care with current psychiatric and neurologic healthcare providers for anxiety, depression, and migraine management. Patient was informed and verbally consented to the use of an ambient scribe for clinic note documentation during this visit. Discussion Notes I discussed with the patient the need for further evaluation of his gastrointestinal symptoms, particularly the persistent diarrhea. A referral to gastroenterology is planned, with the possibility of exploring an irritable bowel syndrome (IBS) diagnosis. We agreed to obtain stool studies to aid in this assessment. Regarding his urological concern, we will conduct a PSA test to examine prostate health and determine if further intervention is necessary for reported bladder symptoms. The patient understands the importance of monitoring symptoms and maintaining current psychiatric and neurologic care. He expressed understanding of the proposed management plan and consented to the outlined i nvestigations and referrals. Patient Instructions - Follow up with gastroenterology as richard nned for further evaluation of diarrhea. - Complete scheduled stool studies for d iagnostic purposes. - Attend a PSA test as discussed to asse ss prostate health. - Continue current psychiatric and neuro logic management. - Seek medical attention if symptoms wor sen or new symptoms arise. [facility] Medical History Cough Venous reflux Gout Internal hemorrhoids Factor 5 Leiden mutation, heterozygous Anxiety DVT (deep venous thrombosis) Erectile dysfunction Patellar dislocation Surgical History History of varicose veins History of left knee surgery Family History Father Cancer Diabetes mellitus Mother History of knee replacement HTN (hypertension) Melanoma Maternal Grandfather No problems noted. Maternal Grandmother Glaucoma Paternal Grandfather No problems noted. Paternal Grandmother No problems noted. Social History Household Members: Spouse Housing: House Are you a primary respite care provider to a significant other at home: No Do you presently have visiting nurse or other home services: No Patient Tobacco Use Status: Never used Tobacco e-Cigarette/Vaping Use: Never Used service: Yes Current occupational status: retired Cognitive needs: No Hearing needs: No Vision needs: Yes Questionnaire PHQ-9 Over the last 2 weeks, how often have you been bothered by any of the following problems? 1. Little interest or pleasure in doing things: more than half the days 2. Feeling down, depressed, or hopeless: more than half the days 3. Trouble falling or staying asleep, or sleeping too much: more than half the days 4. Feeling tired or having little energy: more than half the days 5. Poor appetite or overeating: more than half the days 6. Feeling bad about yourself - or that you are a failure or have let yourself or your family down: more than half the days 7. Trouble concentrating on things, such as reading the newspaper or watching television: more than half the days 8. Moving or speaking so slowly that other people could have noticed. Or the opposite - being so fidgety or restless that you have been moving around a lot more than usual: more than half the days 9. Thoughts that you would be better off or of hurting yourself in some way: not at all Total score: 16 Depression Screening Interpretation: Positive (denies any si or hi) Depression Screening Follow-up: Existing condition and In treatment Depression Screening Done: Yes 93126 - PHQ-9 Billing: Yes Source: Developed by Drs. Eduar Martell, Britney Marie, Zi Thomas and colleagues, with an educational mae from [employer]. Thrive Questionnaire Date Thrive assessed: 03/12/24 I am a: Patient What is your living situation today?: I have a steady place to live Within the past 12 months, did the food you bought not last and you didn't have the money to get more?: Never true Within the past 12 months, did you worry whether your food would run out before you got money to buy more?: Never true Do you have trouble paying for medicines?: No Do you have trouble getting transportation to medical appointments?: No Do you have trouble paying your heating and electricity bill?: No Do you have trouble taking care of your child, family member or friend?: No Do you have trouble with day-to-day activities such as bathing, preparing meals, shopping, managing finances, etc.?: No Are you currently unemployed and looking for a job?: No Are you interested in more education?: No Please select the resources that you would like help with: None Currently or been in a relationship where the following occur: No concerns reported THRIVE Score: 0 AUDIT C Alcohol Use Questionnaire (AUDIT-C) 1. How often do you have a drink containing alcohol?: Monthly or less 2. How many drinks containing alcohol do you have on a typical day when you are drinking?: 1 or 2 3. How often do you have six or more drinks on one occasion?: Never Total Score: 1 Score Reviewed/Action Taken: Yes SABI-7 AMB Questionnaire SABI-7 Date SABI - 7 assessed: 03/12/24 Feeling nervous, anxious, or on edge: 3 = Nearly every day Not being able to stop or control worryin = More than half the days Worrying too much about different things: 2 = More than half the days Trouble relaxin = Nearly every day Being so restless that it is hard to sit still: 3 = Nearly every day Becoming easily annoyed or irritable: 2 = More than half the days Feeling afraid as if something awful might happen: 2 = More than half the days Total SABI-7 score (0-4 normal; 5-9 mild; 10-14 moderate; 15-21 severe): 17 Source: Developed by Drs. Eduar Martell, Britney Marie, Zi Thomas and colleagues, with an educational mae from [employer]. SABI-7 Assessment Billing SABI-7 Assessment Tool: SABI-7 Assessment 29964 (in treatment (psychiatrist and psychologist), denies any si or hi) Physical exam (Primary Care) Vital Signs: Last Vital Signs Temp 97.9 F 03/12/24 14:48 Pulse 98 03/12/24 14:48 Resp 16 03/12/24 14:48 BP 138/86 03/12/24 14:48 Pulse Ox 97 03/12/24 14:48 Oxygen Delivery Method Room Air 03/12/24 14:48 BMI result Body Mass Index 33.0 Tobacco/Smoking Status: Tobacco use Status Tobacco use date assessed 03/12/24 03/12/24 14:51 Patient Tobacco Use Status Never used Tobacco 03/12/24 14:51 e-Cigarette/Vaping Use Never Used 03/12/24 14:51 PHQ-9: PHQ-9 Score PHQ-9: Total score 16 03/12/24 14:51 Depression Screening Interpretation: Positive (denies any si or hi) Depression Screening Follow-up: Existing condition and In treatment Thrive Assessment: Date of Thrive Assessment Date Thrive assessed 03/12/24 03/12/24 14:51 Currently or been in a relationship where the following occur: No concerns reported Coding Level of Care Code Est Pt Prev Care 40-64y(54382) Diagnoses Physical exam Z00.00 Screening PSA (prostate specific antigen) Z12.5 Diarrhea R19.7 Additional Codes PHQ-9 - 58527 - PHQ-9 Billing: Yes ([id number]) SABI-7 Assessment Billing - SABI-7 Assessment Tool: SABI-7 Assessment 01877 ([id number]) Assessment & Plan Assessment & Plan (1) Physical exam: Code(s): Z00.00 - Encounter for general adult medical examination without abnormal findings Category: Medical (2) Screening PSA (prostate specific antigen): Code(s): Z12.5 - Encounter for screening for malignant neoplasm of prostate Category: Medical (3) Diarrhea: Code(s): R19.7 - Diarrhea, unspecified Category: Medical Plan . Orders: Orders Comprehensive [place]. Panel Fast Today Z00.00 - Encounter for general adult medical examination without abnormal findings GI Panel Today R19.7 - Diarrhea, unspecified Erythrocyte Sedimentation Rate Today R19.7 - Diarrhea, unspecified Transglutaminase IgA Today R19.7 - Diarrhea, unspecified Complete Blood Count Auto Diff Today Z00.00 - Encounter for general adult medical examination without abnormal findings TSH reflex Free T4 Today Z00.00 - Encounter for general adult medical examination without abnormal findings UA CC w/rflx Micro + Cult Today Z00.00 - Encounter for general adult medical examination without abnormal findings Lipid Panel Today Z00.00 - Encounter for general adult medical examination without abnormal findings Prostate Specific Antigen Scr Today Z12.5 - Encounter for screening for malignant neoplasm of prostate H pylori Ag Stool Today R19.7 - Diarrhea, unspecified CDiff Gene PCR Today R19.7 - Diarrhea, unspecified C Reactive Protein Today R19.7 - Diarrhea, unspecified Transglutaminase Ab IgG Today R19.7 - Diarrhea, unspecified Endomysial IgA rflx Titer Today R19.7 - Diarrhea, unspecified Referrals Gastroenterology Referral Z00.00 - Encounter for general adult medical examination without abnormal findings
== END 2024-03-12 15:39 | disposition home or self-care (01) ==
PROVIDERS: PCP Nurse Practitioner Family; Visit Provider Nurse Practitioner Family
DX: Z00.00 Encounter for general adult medical examination without abnormal findings (principal); Z12.5 Encounter for screening for malignant neoplasm of prostate; R19.7 Diarrhea, unspecified

== ENCOUNTER → 2024-03-12 14:42 | Outpatient (BNVA) | payer MEDICARE, SELFPAY | PROVIDERS: PCP Nurse Practitioner Family; Visit Provider Nurse Practitioner Family | DX: Z00.00 Encounter for general adult medical examination without abnormal findings (principal); R19.7 Diarrhea, unspecified | CPT/HCPCS: 96127; 99396 ==

== ENCOUNTER 2024-08-19 10:27 | Outpatient (REF) | payer MEDICARE, SELFPAY ==
--- OUTSIDE RECORDS SUMMARY | 2024-08-19 11:19 | XMS_ITS | Data Portability ---
Author Organization [place] - [facility], [facility] Address [address] [place] [address] Care Team Providers Care Automation Consultant Name Role Phone FATOU PARK Primary Care Provider Assessment Encounter Date Assessment Date Assessment LastModified by Organization Details LastModified Time 01/28/2024 01/28/2024 Assessment: Progression of motion and quad activation from IE. Plan: Continue short course of therapy and progress HEP. [email or web address] Not available 01/28/2024 13:57:35 Plan of Treatment Reminders Order Date Submit Date Provider Last Modified By Organization Details Last Modified Time Details Appointments INJECTION ONLY 15 2024 11:00A M Roma Parish PA-C Not available Not available Not available INJECTION ONLY 2024 02:30P M Jovany Berg PA-C Not available Not available Not available INJECTION ONLY 2024 02:30P M Franklin Mendez PA-C Not available Not available Not available Lab None recorded. Referral None recorded. Procedures None recorded. Surgeries None recorded. Imaging XR, knee, 4 or more view - RM 3 4V RIGHT KNEE 2024 025 [email or web address] [facility], [address], [facility] [address], [place], [address], 07/27/2024 14:36:41 Medication Orders None recorded. Patient TargetsNo targets recorded. Patient InstructionsNo instructions recorded. Reason for Referral None Reported. Results Created Date Observation Date Name Description Value Unit Range Abnormal Flag Note LastModifiedBy Organization Detail LastModifiedTime 07/28/19 25 07/27/2024 XR, knee, 4 or more view http:/ [email or web address] ?Encry pted=s hAaTro YD8dLq bEUv6g %2BXZw aYqtaq 0bqfl% 2Fg9IQ a4ajBk vP9nXo QUaueC m3YtLR FvZlgJ JJ8mAn HZtai3 6u0283 AC0Kla HmCUae lKiQtr MwF INTERFACE [facility] [address] [facility] [address], [place], [address], 07/27/2024 10:56:42 07/28/19 25 07/27/2024 XR, knee, 4 or more view http:/ [email or web address] ?Encry pted=s Jameso YD8dLq bEUv6g %2BXZw aYqtaq 0bqfl% 2Fg9IQ a4ajBk vP9nXo QUaueC m3YtLR FvZlgJ JJ8mAn HZtai3 6q2052 AC0Kla HmCUae lKiQtr MwF INTERFACE [facility] Office [address] [facility] [address], [place], [address], 07/27/2024 10:56:43 Result Notes Documentation Provider Name and Address Organization Details Recorded Time Xr, Knee, 4 Or More View : [email or web address]? Encrypted=ouJkVpyMK3oKhaA Uv6g%9ASOnoKhznq5tutm%2Fg 4HEi4gaOwiA6bBbRYocqHs3Op KEEpTclIWJ5qScXNyfq79m224 5BK3PhcLqOFfhvLoQibYtS Not Available [facility] 07/27/2024 10:56: 43 Xr, Knee, 4 Or More View : [email or web address]? 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 Procedures Surgical History Date Name Laterality Status Provider Name and Address Organization Details Recorded Time 5 JZ Knee Asp & Inj completed Angie Perez PA-C [address], [place], [address], [facility] 07/27/2024 11:40:03 5 Sports Knee 4&1 completed Jovany Berg PA-C [address], [place], [address], [facility] 06/24/2024 08:52:59 4 12319 Therapeutic Exercise (1:1) completed Gideon Walker AT [address], [place], [address], [facility] 01/28/2024 13:56:29 4 66020: Manual therapy completed Gideon Walker AT [address], [place], [address], [facility] 01/28/2024 13:56:35 4 95802 Therapeutic Exercise (1:1) completed Bradford Landeros PT [address], [place], [address], [facility] 01/27/2024 05:46:38 4 17461: Low complexity PT Eval completed Bradford Landeros PT [address], [place], [address], [facility] 01/27/2024 05:46:40 Sports Knee Aspiration completed Jovany Berg PA-C [address] [facility], [place], [address], [facility] 01/20/2024 13:47:51 Imaging Results None recorded. Procedure Notes None recorded. Medical Equipment None Reported. Allergies No known drug allergies Medications Name Sig Start Date Stop Date Status Note LastModified by Organization Details LastModified Time prednisone 10 mg tablet TAKE 2 TABLETS BY MOUTH ONCE DAILY FOR 5 DAYS THEN TAKE 1 TABLET DAILY FOR 3 DAYS 01/19 completed Not Available Not Available Not Available ketoconazol e 2 % shampoo PLEASE SEE ATTACHED FOR DETAILED DIRECTION S 06/24 completed Not Available Not Available Not Available azithromyci n 250 mg tablet TAKE 2 TABLETS BY MOUTH TODAY, THEN TAKE 1 TABLET DAILY FOR 4 DAYS DIRECTED 01/19 completed Not Available Not Available Not Available aspirin 325 mg tablet TAKE 1 TABLET BY MOUTH EVERY DAY WITH MEAL FOR 14 DAYS. 06/24 completed Not Available Not Available Not Available fluconazole 150 mg tablet PLEASE SEE ATTACHED FOR DETAILED DIRECTION S 06/24 completed Not Available Not Available Not Available sumatriptan 25 mg tablet PLEASE SEE ATTACHED FOR DETAILED DIRECTION S active Not Available Not Available No t Available prednisone 20 mg tablet TAKE 1 TABLET BY MOUTH TWICE A DAY 01/19 completed Not Available Not Available Not Available Prilosec 20 mg capsule,del ayed release Take 1 capsule every day by oral route. active Not Available Not Available No t Available topiramate 25 mg tablet TAKE 1 TABLET BY MOUTH EVERY DAY FOR 30 DAYS 06/24 completed Not Available Not Available Not Available triamcinolo ne acetonide 0.1 % topical cream PLEASE SEE ATTACHED FOR DETAILED DIRECTION S 06/24 completed Not Available Not Available Not Available simvastatin 40 mg tablet Take 1 tablet every day by oral route. active Not Available Not Available No t Available benzonatate 100 mg capsule TAKE 1 CAPSULE BY MOUTH TWICE DAILY NEEDED FOR COUGH FOR 7 DAYS 01/19 completed Not Available Not Available Not Available doxycycline monohydrate 100 mg capsule TAKE 1 CAPSULE BY MOUTH EVERY DAY AVOID SUN/DAIRY LAYING DOWN AFTER TAKING 06/24 completed Not Available Not Available Not Available pseudoephed rine-guaife nesin ER 80-700 mg tablet,exte nded release TAKE 1 TAB BID 06/24 completed Statu s: 'Curr ent'; Not Available Not Available Not Available losartan 25 mg tablet TAKE 1 TABLET ORALLY DAILY active Not Available Not Available No t Available methylpredn isolone 4 mg tablets in a dose pack TAKE 6 TABLETS ON DAY 1 DIRECTED ON PACKAGE AND DECREASE BY 1 TAB EACH DAY FOR A TOTAL OF 6 DAYS 06/24 completed Not Available Not Available Not Available oxycodone 5 mg tablet TAKE 1 TABLET EVERY 6 HOURS BY ORAL ROUTE NEEDED FOR 5 DAYS, FOR POSTOPERA TIVE PAIN. 06/24 completed Not Available Not Available Not Available cyclobenzap rine 5 mg tablet Take 1 tablet 3 times a day by oral route as needed, for muscle spasms. 06/24 completed Not Available Not Available Not Available venlafaxine ER 225 mg tablet,exte nded release 24 hr Take 1 tablet every day by oral route. active Not Available Not Available No t Available butalbital- acetaminoph en-caffeine 50 mg-300 mg-40 mg capsule TAKE 1 CAPSULE BY MOUTH EVERY 8 HOURS NEEDED FOR HEADACHE 06/24 completed Not Available Not Available Not Available loratadine 10 mg capsule Take by oral route. active Not Available Not Available No t Available Xarelto active Not Available Not Avail able Not Available Aimovig Autoinjecto r 140 mg/mL subcutaneou s auto-inject or INJECT 140 MG SUBCUTANE OUS INJECTION EVERY 28 DAYS active Not Available Not Available No t Available Vitals Date Recorded Body height Body mass index (BMI) Body weight Provider Name and Address Organization Details Last Updated DateTime 06/24/2024 185.42 cm 33 kg/m2 784529.09 g Phyllis Melendez [facility] 06/24/2024 08:20:52 Date Recorded Body height Body mass index (BMI) Body weight Provider Name and Address Organization Details Last Updated DateTime 07/27/2024 185.42 cm 33 kg/m2 766909.09 g ADWOA LEE [facility] 07/27/2024 10:39:55 Date Recorded Body height Body temperature Body mass index (BMI) Body weight Provider Name and Address Organization Details Last Updated DateTime 01/24/2024 185.42 cm 98 [degF] 33 kg/m2 674504.09 g Lisbet Almaguer [facility] 01/24/2024 10:03:25 Date Recorded Body height Body mass index (BMI) Body weight Provider Name and Address Organization Details Last Updated DateTime 02/07/2024 185.42 cm 33 kg/m2 014565.09 g IMELDA DUNBAR [facility] 02/07/2024 09:43:01 Social History None recorded. Functional Status None recorded. Mental Status None recorded. Family History Nothing Reported. Medical History No medical history recorded. Past Encounters Encounter ID Performer Location Encounter Start Date Encounter Closed Date Diagnosis/Indication Diagnosis SNOMED-CT Code Diagnosis ICD10 Code Diagnosis Note [id number] Panchito Licea PA-C [facility] [address] [place] [address] 10/03/2023 08:41:26 10/30/2023 14:21:20 Pain of right knee joint 5990253876 85442 M25.561 Acute tear of medial meniscus of right knee 2164050834 7408317 S83.241A [id number] MD Ramon Jimenes [address] [place] [address] 01/08/2024 09:04:49 01/30/2024 14:09:42 Acute meniscal tear, medial 118622324 S83.231D [id number] Bradford Landeros, PT [facility] [address] [place] [address] 01/24/2024 10:13:15 01/24/2024 11:06:32 Chondromalacia [id number] M94.262 [id number] ALDA Nguyen [address] [place] [address] 01/20/2024 11:58:08 02/18/2024 13:58:53 Pain of knee region 7902700746 G89.18 M25.597 [id number] ALDA Nguyen [address] [place] [address] 01/24/2024 08:57:09 02/24/2024 10:15:30 Acute meniscal tear, medial 452173999 S83.231D [id number] Gideon Walker, AT [facility] [address] [place] [address] 01/28/2024 08:46:41 01/28/2024 09:28:02 Chondromalacia [id number] M94.280 [id number] Jovany Berg PA-C [facility] [address] [place] [address] 02/07/2024 09:38:13 02/27/2024 07:26:05 Pain of right knee joint 5848954157 51162 M25.600 [id number] Jovany Berg PA-C [facility] [address] [place] [address] 06/24/2024 08:06:52 07/13/2024 10:11:37 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 0499012706 M17.31 [id number] Angie Perez PA-C [facility] [address] [place] [address] 07/27/2024 10:14:41 08/10/2024 15:15:21 Pain of right knee joint 3005452618 08516 M25.561 Health Concerns Section Related Observation LastModified by Organization Detai ls LastModified Time None Recorded Concern Status LastModified by Organization Details LastModified Time None Recorded Advance Directives Directive None Recorded Payers Insurance Date Sequence Insurance Name Policy Number Policy Gracia Covered Member ID Gracia Member ID Guarantor Name 08/19/2024 1 [facility] BLUE (MEDICARE REPLACEMENT PPO) [id number] Amadou Colon [id number] Amadou Colon 01/07/2024 2 [employer] ( - MEDICARE SUPPLEMENT) Amadou Colon [id number] Amadou Colon 01/07/2024 2 [facility] [employer] () Amadou Colon [id number] Amadou Colon Notes Date Note Type Note Provider Name and Address Organization Details Recorded Time 01/24/2024 text/html I am seeing the patient today under the supervision of Dr. Chand who was available but who did not see the patient. HISTORY OF PRESENT ILLNESS The patient returns for initial postop evaluation status post Right Knee Arthroscopy. Patient reports to be doing better at this time after having initial adverse complications during the perioperative/postoper ative course. he was seen earlier this week with significant hemarthrosis. I aspirated the knee and he has felt much better. Scheduled to initiate therapy today. They are pleased with their initial progress. Operative findings: complex medial meniscus tear right knee debrided with partial meniscectomy. Grade 3 arthritic changes involving patella, trochlea and lateral compartment PHYSICAL FINDINGS The patient ambulates with crutches, mild antalgic gait, 2+ effusion. Incision is healing well. Sutures Removed, steri's applied. No sign of infection or DVT. ASSESSMENT Status post Knee Arthroscopy PLAN Discussed plans for slow return to normal activities over 4-6 weeks. Continue modifications activities utilizing ice, oral NSAIDs as clinically indicated. Benefits of home physical therapy described and outlined in detail for the patient today. Recommendation is made for follow-up care in 6 weeks' time if patient remains symptomatic. Jovany Berg PA-C [address], [place], [address], [facility] 01/24/2024 10:12:26 01/24/2024 text/html Patient is 58 ye ar old male, with history of knee pain, reporting gradual onset for mechanism of injury. Presents today s/p knee AAA, stating 4/10 pain and swelling. Arrives today ambulating with out AD, demonstrating antalgic gait mechanics. Has begun to wean off of crutches at this time. Current vocational status is retired. Functional limitations include restricted knee ROM, difficulty ambulating community distances, and navigating stairs reciprocally. Patient goal is to have no pain, and walk normal. Bradford Landeros, PT [address], [place], [address], [facility] 01/27/2024 05:49:29 01/28/2024 text/html Patient presents today reporting 1/10 pain. Pt states having a dull ache into the knee. Gideon Walker, AT [address], [place], [address], [facility] 01/28/2024 14:00:33 02/07/2024 text/html I am seeing the patient today under the supervision of Dr. Chand who was available but who did not see the patient. HPI: This patient is a 58-year-old who is status post right knee arthroscopy. Postoperatively his recovery was complicated by large hemarthrosis which was aspirated in the office. He has done much better following that but has noted some reaccumulation of fluid. Concerned by fluid in the joint he returns for routine follow-up postoperatively. Symptoms have been improving Past family, medical, social history and review of systems has been reviewed, updated and signed by me and is located in the patient's chart. Examination: The patient is well appearing and in no apparent distress. Alert and oriented x3. Gait is symmetric. Intact motion 0 to 125 degrees. Moderate-sized joint effusion approximately 20 to 25 cc of joint fluid but not tense. No redness or warmth or other signs of infection. Calf soft and nontender and no sign of DVT identified. No edema. Impression: Status post right knee arthroscopy with joint effusion Plan: Patient overall doing well. Advised against repeat injection at this time. Do not feel it is necessary. Should continue to see spontaneous resolution over time. Do's and don'ts were discussed. Patient will progress activities as tolerated. Recheck in our office in 1 to 2 months if symptoms do not improve. Would offer a knee aspiration and injection once he is more than 2 months status post surgery. He is comfortable with this recommendation. Jovany Berg PA-C [address], [place], [address], [facility] 02/07/2024 12:34:55 06/24/2024 text/html I am seeing the patient today under the supervision of Dr. Salomon who was available but who did not see the patient. HPI:Patient presents today follow-up regarding their Right knee. Amadou is 5 to 6 months status post right knee arthroscopy. Intermittent continued pain and mechanical symptoms of clicking catching and locking. Arthroscopically was found to have some areas of grade 4 arthritis. They have had difficulty up and down stairs sitting standing. Presents at this time requesting intra-articular injection. No prior history of injection. All questions answered to his satisfaction. Problems ambulating. Bsrw-umt-dimbnit medications are helping somewhat but not significantly. Pain is constant aching sometimes sharp pain with giving out sensations. Past family, medical, social history and review of systems has been reviewed, updated and is located in the patient s chart. Examination:The patient is well appearing and in no apparent distress. Alert and oriented x3. Gait is symmetric. Examination of the Right knee reveals no evidence of any edema, erythema, or warmth. No Deformity. Range of motion of the knee limited with mild discomfort at the end ranges. Mild effusion. Does have some tenderness to palpation about the medial hemijoint line. No tenderness to palpation about the lateral hemijoint line. Patellofemoral crepitus is noted. mild lateral ligamentous laxity. Negative Vanita s. Calf is supple and nontender. Neurovascularly intact distally. Impression:Right Knee osteoarthritis Plan:We discussed the role of conservative management including medications, physical therapy, injection and bracing. At this point the patient was to proceed with injection. Please see procedure note. They will follow up with us as scheduled. Jovany Berg PA-C [address], [place], [address], [facility] 06/24/2024 08:53:43 07/27/2024 text/html I am seeing the patient today under the supervision of dr Vásquez who was available but who did not see the patient. DX: Right knee effusion possible hemarthrosisRight knee osteoarthritis status post cortisone injection 06/24/2024 HPI: 58-year-old male returns today for examination. He was seen 1 month ago by Mr. Berg He underwent aspiration of his knee effusion and a cortisone injection. He comes in today complaining of increased swelling. He would like his knee aspirated. Patient states that he is on Xarelto also Past family, medical, social history and review of systems has been reviewed, updated and is located in the patient s chart. Examination: Right knee- A+O x3 non antalgic gait+ effusion. no warmth, or erythemaROM 0-120 degressNo retropatella crepitance+ Medial joint line TTPNo collateral ligmant instability with varus or valgus stressCalf soft - TTPCompartments soft - TTPDF/PF intactN/V intact Left knee reveals no soft tissue swelling , erythema or ecchymosis. Range of motion is full. Neurovascular intact. X-rays ordered, obtained and reviewed at [facility] 4 views right knee reveals medial compartment osteoarthritis. Degenerative changes noted of the patellofemoral joint Impression/Plan:Rhys laguna on the situation discussed. Treatment options were discussed. Recommended aspiration. Under aseptic technique number 18-gauge needle was inserted into the superior lateral aspect of the right knee. 35 cc of serosanguineous fluid was aspirated. Patient will ice 20 minutes on and 20 minutes off. I advised him to use a knee sleeve. He is aware that he may have an underlying hemarthrosis because he is on Xarelto. Will obtain prior authorization for viscosupplementation. Patient will follow-up once authorization is obtained. Angie Perez PA-C [address], [place], [address], [facility] 07/27/2024 11:40:19
[2024-08-19 15:52] LABS: MANUAL DIFF FLAG NO
[2024-08-19 15:56] LABS: Hematocrit 39.9 % (42.0-52.0); Hemoglobin 14.0 g/dl (14.0-18.0); Imm Gran Abs Auto 0.01 X10*3/uL (0.00-0.03); Imm Gran Pct Auto 0.2 % (0.0-0.4); Lymphocytes Absolute Auto 1.3 X10*3/uL (1.2-4.9); Mean Corpuscular HGB Conc 35.1 g/dl (31.0-36.0); Mean Corpuscular Hemoglobin 31.3 pg (27.0-33.0); Mean Corpuscular Volume 89.3 fL (80.0-98.0); NRBC Abs Auto 0.000 X10*3/uL (0.0-0.012); NRBC Pct Auto 0.0 /100WBC (0.0-0.2); Platelet Count 243 X10*3/uL (160-400); Red Blood Count 4.47 X10*6/uL (4.60-5.80); White Blood Count 4.7 X10*3/uL (4.8-10.8)
[2024-08-19 16:17] LABS: Appearance Urine Turbid; Glucose Urine UA Negative (Negative); PH 5.5 (5.0-9.0); Specific Gravity - Urine 1.025 (1.005-1.025)
[2024-08-19 16:19] LABS: Alanine Aminotransferase 23 U/L (0-40); Albumin Level 4.1 g/dL (3.5-5.0); Alkaline Phosphatase 67 U/L (39-117); Anion Gap 14 (12-20); Aspartate Amino Transferase 31 U/L (5-37); Blood Urea Nitrogen 10 mg/dL (9-16); Calcium 9.0 mg/dL (8.4-10.2); Carbon Dioxide 26 mmol/L (22-29); Chloride 106 mmol/L (96-108); Cholesterol 155 mg/dL (<200); Estimated Glomerular Filt Rate > 60; HDL Cholesterol 57 mg/dL (>40); Potassium 3.7 mmol/L (3.3-5.1); Sodium 142 mmol/L (135-145); Total Protein 6.5 g/dL (6.5-8.0); Triglycerides 296 mg/dL (<150)
[2024-08-20 14:28] LABS: Transglutaminase Ab IgG <1.0 U/mL
== END 2024-08-19 10:28 | disposition home or self-care (01) ==
LOC: HO.HMGCLDS 10:27
PROVIDERS: PCP Nurse Practitioner Family; Visit Provider Nurse Practitioner Family
DX: Z00.00 Encounter for general adult medical examination without abnormal findings (principal); R19.7 Diarrhea, unspecified; Z12.5 Encounter for screening for malignant neoplasm of prostate
CPT/HCPCS: 36415; 80053; 80061; 81003; 84153; 84443; 85025; 85652; 86140; 86231; 86364

== ENCOUNTER 2024-09-07 10:35 | Outpatient (AMB) | payer MEDICARE, OTHER, SELFPAY ==
--- NOTE | 2024-09-07 10:36 | MHC.OFFVIS ---
Vital Signs 09/07/24 10:42 Height 6 ft 1 in Weight 234 lb BMI 30.9 BP 146/86 H Blood Pressure Location Rt brachial Position Sitting Pulse 112 H Pulse Source Pulse Oximeter Pulse Oximetry (%) 96 Oxygen Delivery Method Room Air Intake Visit Reasons: Colonoscopy Screening Intake Note: Est/New pt for recall colo screening. Last w/ Dr. Clark ~ 10 years ago. CC; C.O. diarrhea, intermittent N+V, hx of GERD (currently well managed). Pt states that he has been having frequent diarrhea for the last 8-9 mos. Pt states that his sx are consistent regardless of his diet / lifestyle. Regional Sales Trainer Required: No Accompanied by: Self / Same As Patient Allergies bupropion Adverse Reaction (Intermediate, Verified 09/07/24 10:36) Anxiety HPI HPI Colonoscopy Screening: Details: 57-year-old male with past medical history of hypertension, right knee pain, dyslipidemia, DVT, gout, factor 5 laden mutation is here today for initial consultation. Patient was sent to us by his PCP. Patient has been experiencing postprandial diarrhea. Patient reports that he has been experiencing these symptoms for a long time, however lately diarrhea is more frequent now. Patient denies melena, hematochezia. Last colonoscopy was in May of 2016. Patient had no polyps and recommendation was made for 10 year colonoscopy screening. CRP was normal. Patient reports no abdominal pain or cramping when he has the urge to go to have a bowel movement. Patient has been on omeprazole for 35 years or so. If stops taking it he will have acid reflux. Patient denies any nausea or vomiting. Denies any dyspepsia, dysphagia or odynophagia. [facility] Medical History (Updated 09/07/24 @ 11:37 by Ekaterina Shepard, [facility]) GERD (gastroesophageal reflux disease) Normal esophagogastroduodenoscopy (EGD) Cough Venous reflux Gout Internal hemorrhoids Factor 5 Leiden mutation, heterozygous Anxiety DVT (deep venous thrombosis) Erectile dysfunction Patellar dislocation Surgical History (Updated 09/07/24 @ 10:43 by Anibal Ross [facility]) H/O colonoscopy History of varicose veins History of left knee surgery Family History Father Cancer Diabetes mellitus Mother History of knee replacement HTN (hypertension) Melanoma Maternal Grandfather No problems noted. Maternal Grandmother Glaucoma Paternal Grandfather No problems noted. Paternal Grandmother No problems noted. Social History Household Members: Spouse Housing: House Are you a primary customer care specialist to a significant other at home: No Do you presently have visiting nurse or other home services: No Patient Tobacco Use Status: Never used Tobacco e-Cigarette/Vaping Use: Never Used service: Yes Current occupational status: retired Cognitive needs: No Hearing needs: No Vision needs: Yes Review of Systems Const Denies weight gain and Denies weight loss ENT Reports no additional complaints, Denies dysphagia and Denies odynophagia Card Reports no additional complaints Resp Reports no additional complaints GI Denies abdominal pain, Denies belching, Denies melena, Denies bloating, Denies change in bowel habits, Denies dysphagia, Denies excessive flatus, Denies dyspepsia, Reports heartburn (Occasional), Denies diarrhea, Reports loose stools (Postprandially), Denies nausea, Denies odynophagia and Denies vomiting Reports no additional complaints Musc Reports no additional complaints Neuro Reports no additional complaints Psych Reports no additional complaints Endo Reports no additional complaints Physical Exam Vital Signs: Last Vital Signs Pulse 112 H 09/07/24 10:42 BP 146/86 H 09/07/24 10:42 Pulse Ox 96 09/07/24 10:42 Oxygen Delivery Method Room Air 09/07/24 10:42 BMI result Body Mass Index 30.9 Const General: healthy appearing, no acute distress and well developed Nutritional Appearance: well nourished and obese Orientation/consciousness: patient oriented x3 Resp Effort & Inspection: normal respiratory effort, able to speak in complete sentences, no tracheal deviation and symmetric chest movement Auscultation: clear to auscultation bilaterally Cardio Rate: regular rate GI Inspection: Yes normal to inspection, No distended and Yes obesity Palpation (GI): Soft to palpation, not firm, nontender and No hepatosplenomegaly present Auscultation: normal bowel sounds General: Yes no CVA tenderness Back/Spine/Pelvis Back: no CVA tenderness Skin General skin exam: elasticity normal, turgor normal and dry skin Neuro General: patient oriented x3 Psych Appearance: grossly normal Mental Status: mental status grossly normal Results Reviewed Results Reviewed: Laboratory Tests 08/19/24 10:32 C-Reactive Protein 0.11 Assessment & Plan Assessment & Plan (1) GERD (gastroesophageal reflux disease): Code(s): K21.9 - Gastro-esophageal reflux disease without esophagitis Category: Medical Qualifiers: Esophagitis presence: esophagitis presence not specified Qualified Code(s): K21.9 - Gastro-esophageal reflux disease without esophagitis (2) Postprandial diarrhea: Code(s): K52.9 - Noninfective gastroenteritis and colitis, unspecified (3) Screen for colon cancer: Code(s): Z12.11 - Encounter for screening for malignant neoplasm of colon Plan Will do fecal study, vitamin-D, B12, folate. Patient had normal transglutaminase, celiac ruled out. Patient will increase fiber intake and he can take [id number] fiber with pre and probiotics. Patient will be sent for colonoscopy. Upper endoscopy will be ordered as well. Patient has been on PPI for over 35 years. For now patient will continue taking PPI. Avoid dietary triggers and late night snacking. Staying upright for minimum 3 hours after meals discussed with patient. What to expect before during and after procedure discussed with patient. Stressed the importance of clear liquid diet and good bowel prep day before procedure. Patient will be seen after the procedure, sooner on as needed basis. Patient is agreeable to this plan and verbalizes understanding of instructions. He was given the opportunity to ask questions and all questions answered. Thank you for allowing me to participate in his care Orders: Orders Vitamin D 25-OH (D2 and D3) Today E55.9 - Vitamin D deficiency, unspecified Fecal Fat Qualitative Today R19.7 - Diarrhea, unspecified Ova and Parasite Today R19.7 - Diarrhea, unspecified Vitamin B12 and Folate Today R19.7 - Diarrhea, unspecified GI Panel Today R19.7 - Diarrhea, unspecified Calprotectin, Fecal Today R15.9 - Full incontinence of feces Medications: New polyethylene glycol 3350 (Miralax) As directed by gastroenterology department at [facility] 238 grams PO ONCE 238 grams 0RF Z12.11 - Encounter for screening for malignant neoplasm of colon bisacodyl (Dulcolax (bisacodyl)) take 4 tabs at noon the day before your colonoscopy 20 mg (4 x 5 mg) PO ONCE 4 tabs 0RF constipation 1 day Z12.11 - Encounter for screening for malignant neoplasm of colon Coding Level of Care Code New Pt Level 4 (90503) Diagnoses Gastroesophageal reflux disease, unspecified whether esophagitis present K21.9 Esophagitis presence: esophagitis presence not specified Postprandial diarrhea K52.9 Screen for colon cancer Z12.11 Time Spent (min) 50 Comment 35 minutes spent with patient and additional 15 minutes spent reviewing his records
[2024-09-07 10:42] VITALS: BP 146/86; PULSE 112; O2SAT 96; BMI 30.9
== END 2024-09-07 12:12 | disposition home or self-care (01) ==
PROVIDERS: PCP Nurse Practitioner Family; Visit Provider Nurse Practitioner Family
DX: K21.9 Gastro-esophageal reflux disease without esophagitis (principal); K52.9 Noninfective gastroenteritis and colitis, unspecified
CPT/HCPCS: 99204

== ENCOUNTER 2024-09-07 10:35 | Outpatient (REF) | payer MEDICARE, SELFPAY ==
[2024-09-07 13:15] LABS: Folate 7.0 ng/mL (> or = 4.0); Vitamin B12 323 pg/mL (200-900)
[2024-09-10 12:49] LABS: Vitamin D 25-OH, D2 <4 ng/mL; Vitamin D 25-OH, D3 40 ng/mL; Vitamin D 25-OH, Total 40 ng/mL (30-100)
== END 2024-09-07 10:36 | disposition home or self-care (01) ==
LOC: HO.LAB 10:35
PROVIDERS: PCP Nurse Practitioner Family; Visit Provider Nurse Practitioner Family
DX: K21.9 Gastro-esophageal reflux disease without esophagitis (principal); R11.2 Nausea with vomiting, unspecified; K52.9 Noninfective gastroenteritis and colitis, unspecified; E55.9 Vitamin D deficiency, unspecified; R15.9 Full incontinence of feces; Z12.11 Encounter for screening for malignant neoplasm of colon; Z79.899 Other long term (current) drug therapy
CPT/HCPCS: 36415; 82306; 82607; 82746; 99202

== ENCOUNTER 2024-09-09 14:13 | Outpatient (REF) | payer MEDICARE, SELFPAY ==
[2024-09-17 00:19] LABS: Calprotectin, Fecal 25 mcg/g
== END 2024-09-09 14:14 | disposition home or self-care (01) ==
LOC: HO.LNP 14:13
PROVIDERS: Visit Provider Nurse Practitioner Family
DX: R19.7 Diarrhea, unspecified (principal); R15.9 Full incontinence of feces
CPT/HCPCS: 82705; 83993; 87177; 87209; 87507

== ENCOUNTER 2024-09-10 11:06 | Outpatient (AMB) | payer MEDICARE, SELFPAY ==
--- NOTE | 2024-09-10 11:12 | A.OFFPC_ITS ---
Vital Signs 09/10/24 11:13 Height 6 ft 1 in Weight 236 lb BMI 31.1 BP 130/88 Blood Pressure Location Rt brachial Position Sitting Respiration 16 Pulse 95 Pulse Source Pulse Oximeter Temp 98.3 F Temp Source Oral Pulse Oximetry (%) 99 Oxygen Delivery Method Room Air Intake Visit Reasons: 6m f/u Toppiece Cutter Required: No Accompanied by: Self / Same As Patient Allergies bupropion Adverse Reaction (Intermediate, Verified 09/10/24 11:14) Anxiety Medication List - Last Reconciled 09/10/24 by FABRICIO Garcia bisacodyl (Dulcolax (bisacodyl)) 20 mg (4 x 5 mg) PO ONCE 1 day erenumab-aooe (Aimovig Autoinjector) 70 mg subcut QMONTH loratadine 10 mg PO DAILY losartan 25 mg PO DAILY multivitamin 1 tab PO DAILY omeprazole 1 cap PO DAILY polyethylene glycol 3350 (Miralax) 238 grams PO ONCE rivaroxaban (Xarelto) 20 mg PO DAILY simvastatin 40 mg PO DAILY venlafaxine ER 225 mg PO DAILY Tobacco use date assessed: 09/10/24 Dental Screening Dental Screen Date: 09/10/24 Did you have a dental visit in the last 12 months?: Yes Did you have a dental problem in the last 6 months where you did not have access to dental care?: No Was dental information given to patient?: Patient has dentist HPI 6m f/u HPI Details Pt is a newly diagnosed diabetic. Will have him follow up with [facility]. Went over dietary restrictions, and importance of proper diet. Pt reports some neuropathy. He knows the importance of examining his feet on a regular basis and getting yearly eye exams (upcoming next month). Denies any currrent polyuria and polydipsia, fevers, chills, n/v. Seeing GI for diarrhea. will order a microalbumin. A1c today is 5.6. He is already on a arb and a statin. Will have him start BID testing, once in the am (fasting), and randomly one other time throughout the day. Will follow up with him. Will order diabetic supplies as well [facility] Medical History GERD (gastroesophageal reflux disease) Normal esophagogastroduodenoscopy (EGD) Cough Venous reflux Gout Internal hemorrhoids Factor 5 Leiden mutation, heterozygous Anxiety DVT (deep venous thrombosis) Erectile dysfunction Patellar dislocation Surgical History H/O colonoscopy History of varicose veins History of left knee surgery Family History Father Cancer Diabetes mellitus Mother History of knee replacement HTN (hypertension) Melanoma Maternal Grandfather No problems noted. Maternal Grandmother Glaucoma Paternal Grandfather No problems noted. Paternal Grandmother No problems noted. Social History Household Members: Spouse Housing: House Are you a primary workforce investment act career manager to a significant other at home: No Do you presently have visiting nurse or other home services: No Patient Tobacco Use Status: Never used Tobacco e-Cigarette/Vaping Use: Never Used service: Yes Current occupational status: retired Cognitive needs: No Hearing needs: No Vision needs: Yes Questionnaire PHQ-9 Over the last 2 weeks, how often have you been bothered by any of the following problems? 1. Little interest or pleasure in doing things: more than half the days 2. Feeling down, depressed, or hopeless: more than half the days 3. Trouble falling or staying asleep, or sleeping too much: more than half the days 4. Feeling tired or having little energy: more than half the days 5. Poor appetite or overeating: more than half the days 6. Feeling bad about yourself - or that you are a failure or have let yourself or your family down: more than half the days 7. Trouble concentrating on things, such as reading the newspaper or watching television: more than half the days 8. Moving or speaking so slowly that other people could have noticed. Or the opposite - being so fidgety or restless that you have been moving around a lot more than usual: more than half the days 9. Thoughts that you would be better off or of hurting yourself in some way: not at all Total score: 16 Depression Screening Interpretation: Positive (denies any si or hi) Depression Screening Follow-up: Existing condition and In treatment Depression Screening Done: Yes 50116 - PHQ-9 Billing: Yes Source: Developed by Drs. Eduar Martell, Britney Marie, Zi Thomas and colleagues, with an educational mae from [employer]. Thrive Questionnaire Date Thrive assessed: 03/12/24 I am a: Patient What is your living situation today?: I have a steady place to live Within the past 12 months, did the food you bought not last and you didn't have the money to get more?: Never true Within the past 12 months, did you worry whether your food would run out before you got money to buy more?: Never true Do you have trouble paying for medicines?: No Do you have trouble getting transportation to medical appointments?: No Do you have trouble paying your heating and electricity bill?: No Do you have trouble taking care of your child, family member or friend?: No Do you have trouble with day-to-day activities such as bathing, preparing meals, shopping, managing finances, etc.?: No Are you currently unemployed and looking for a job?: No Are you interested in more education?: No Please select the resources that you would like help with: None Currently or been in a relationship where the following occur: No concerns reported THRIVE Score: 0 SABI-7 AMB Questionnaire SABI-7 Being so restless that it is hard to sit still: 3 = Nearly every day Source: Developed by Drs. Eduar Martell, Britney Marie, Zi Thomas and colleagues, with an educational mae from [employer]. Physical exam (Primary Care) Vital Signs: Last Vital Signs Temp 98.3 F 09/10/24 11:13 Pulse 95 09/10/24 11:13 Resp 16 09/10/24 11:13 BP 130/88 09/10/24 11:13 Pulse Ox 99 09/10/24 11:13 Oxygen Delivery Method Room Air 09/10/24 11:13 BMI result Body Mass Index 31.1 Tobacco/Smoking Status: Tobacco use Status Tobacco use date assessed 09/10/24 09/10/24 11:21 Patient Tobacco Use Status Never used Tobacco 09/10/24 11:15 e-Cigarette/Vaping Use Never Used 09/10/24 11:15 PHQ-9: PHQ-9 Score PHQ-9: Total score 16 09/10/24 11:21 Depression Screening Interpretation: Positive (denies any si or hi) Depression Screening Follow-up: Existing condition and In treatment Thrive Assessment: Date of Thrive Assessment Date Thrive assessed 03/12/24 09/10/24 11:15 Currently or been in a relationship where the following occur: No concerns reported Const General: cooperative, healthy appearing, comfortable, no acute distress and well developed Resp Effort & Inspection: normal respiratory effort Auscultation: clear to auscultation bilaterally Cardio Rate: regular rate Rhythm: regular rhythm Heart sounds: S1 normal heart sound present, S2 normal heart sound present and no murmurs Neuro Other: + sensation with use of monofilament Extrem Other: feet were intact bilat Psych Appearance: grossly normal and well kempt Mental Status: mental status grossly normal Speech and movement: Normal speech and movement present Affect: normal affect Attitude: cooperative Thought process: Normal thought process present Thought content: Normal thought content present Insight: Good insight present (Psych) Judgement: Good judgement present (Psych) Coding Level of Care Code Est Pt Level 4 (19908) Diagnoses Newly diagnosed diabetes E11.9 Additional Codes PHQ-9 - 01216 - PHQ-9 Billing: Yes ([id number]) Assessment & Plan Assessment & Plan (1) Newly diagnosed diabetes: Code(s): E11.9 - Type 2 diabetes mellitus without complications Category: Medical Plan . Orders: Orders Microalbumin, Random (w Creat) Today E11.9 - Type 2 diabetes mellitus without complications Referrals Nurse Navigator Referral E11.9 - Type 2 diabetes mellitus without co mplications
[2024-09-10 11:13] VITALS: BP 130/88; PULSE 95; RESP 16; TEMP 36.8; O2SAT 99; BMI 31.1
== END 2024-09-10 11:54 | disposition home or self-care (01) ==
LOC: HO.HMCC 11:06
PROVIDERS: PCP Nurse Practitioner Family; Visit Provider Nurse Practitioner Family
DX: E11.9 Type 2 diabetes mellitus without complications (principal); Z13.9 Encounter for screening, unspecified

== ENCOUNTER → 2024-09-10 11:06 | Outpatient (BNVA) | payer MEDICARE, SELFPAY | PROVIDERS: PCP Nurse Practitioner Family; Visit Provider Nurse Practitioner Family | DX: E11.40 Type 2 diabetes mellitus with diabetic neuropathy, unspecified (principal); Z79.899 Other long term (current) drug therapy | CPT/HCPCS: 83036; 96127; 99212 ==

== ENCOUNTER 2024-09-14 12:09 | Outpatient (REF) | payer MEDICARE, SELFPAY ==
[2024-09-14 15:25] LABS: E. coli EAEC Not Detected (Not Detect.); E. coli EPEC Not Detected (Not Detect.); E. coli ETEC Not Detected (Not Detect.); E. coli STEC Not Detected (Not Detect.); Shigella sp./EIEC Not Detected (Not Detect.)
== END 2024-09-14 12:10 | disposition home or self-care (01) ==
LOC: HO.LNP 12:09
PROVIDERS: Visit Provider Nurse Practitioner Family
DX: R19.7 Diarrhea, unspecified (principal)
CPT/HCPCS: 87507

== ENCOUNTER 2024-11-06 08:05 | Day surgery (SDC) | payer MEDICARE, SELFPAY ==
--- NOTE | 2024-11-04 11:54 | HO.ANESPROP2 ---
Documented by User: Amaya Escobar NP 11/04/24 11:57 HPI - Anesthesia Eval Consult details Narrative: 59yo M for Upper Endoscopy and Colonoscopy Xarelto for Factor V / hx DVT PMFSH Active Problems Active Problems: All Active Problems Newly diagnosed diabetes (Acute) GERD (gastroesophageal reflux disease) (Acute) Diarrhea (Acute) H/O right knee surgery (Acute) Tachycardia (Acute) Migraine (Acute) Medial meniscus tear (Acute) Abnormal x-ray of knee (Acute) Right knee pain (Acute) HTN (hypertension) (Acute) Right knee sprain (Acute) Elevated temperature (Acute) Cough (Acute) Viral illness (Acute) Skin lesions (Acute) Elevated fasting blood sugar (Acute) Dyslipidemia (Acute) Physical exam (Acute) Syncope and collapse (Acute) Nerve root compression (Acute) Varicose veins of left lower extremity with inflammation (Acute) Lumbar back pain with radiculopathy affecting left lower extremity (Acute) Cervical neck pain with evidence of disc disease (Acute) Elevated liver enzymes (Acute) Orthostatic hypotension (Acute) LOC (loss of consciousness) (Acute) Bradycardia (Acute) Chronic deep vein thrombosis (DVT) (Acute) Swelling of left lower extremity (Acute) Gout (Acute) Acute gout (Acute) Dyslipidemia (Acute) Factor 5 Leiden mutation, heterozygous (Acute) Screening PSA (prostate specific antigen) (Acute) Gout (Acute) Swelling of knee joint, left (Acute) Screening for HIV (human immunodeficiency virus) (Acute) Screening PSA (prostate specific antigen) (Acute) Physical exam (Acute) Past Medical History Medical History (Updated 11/06/24 @ 08:46 by Saray Orourke RN) GERD (gastroesophageal reflux disease) Normal esophagogastroduodenoscopy (EGD) Cough Venous reflux Gout Internal hemorrhoids Factor 5 Leiden mutation, heterozygous Anxiety DVT (deep venous thrombosis) Erectile dysfunction Patellar dislocation Family History Family History (Reviewed 09/10/24 @ 11:36 by [facility]UN[facility]) Father Cancer Diabetes mellitus Mother History of knee replacement HTN (hypertension) Melanoma Maternal Grandfather No problems noted. Maternal Grandmother Glaucoma Paternal Grandfather No problems noted. Paternal Grandmother No problems noted. Surgical History Surgical History (Updated 11/06/24 @ 08:48 by Saray Orourke RN) H/O right knee surgery History of tonsillectomy H/O colonoscopy History of varicose veins History of left knee surgery Social History Social History Household Members: Spouse Housing: House Are you a primary progressive care unit registered nurse to a significant other at home: No Do you presently have visiting nurse or other home services: No Patient Tobacco Use Status: Never used Tobacco e-Cigarette/Vaping Use: Never Used Use of substances other than those prescribed or required for medical reasons: No Are you DNR?: No Advance Directives: No Advance Directives Information Provided: Yes Poor oral hygiene: No service: Yes Current occupational status: retired Cognitive needs: No Hearing needs: No Vision needs: Yes Meds Allergies Allergy/AdvReac Type Severity Reaction Status Date / Time bupropion AdvReac Intermediate Anxiety Verified 09/10/24 11:14 Home Medications ?Medication ?Instructions ?Recorded ?Confirmed ?Last Taken ?Type multivitamin 1 tab PO DAILY 02/16/21 09/10/24 Unknown History rivaroxaban 20 mg tablet (Xarelto) 20 mg PO DAILY 06/15/21 09/10/24 11/02/24 History simvastatin 80 mg tablet 40 mg PO DAILY 06/15/21 09/10/24 Unknown History loratadine 10 mg tablet 10 mg PO DAILY 08/17/21 09/10/24 Unknown History omeprazole 20 mg capsule,delayed 1 cap PO DAILY 08/17/21 09/10/24 Unknown History release venlafaxine 150 mg 225 mg PO DAILY 12/19/22 09/10/24 Unknown History capsule,extended release 24 hr erenumab-aooe 70 mg/mL 70 mg subcut QMONTH 09/10/24 09/10/24 Unknown History subcutaneous auto-injector (Aimovig Autoinjector) Exam Pertinent Lab Results Pertinent Lab Results: Laboratory Tests 08/19/24 10:32 WBC 4.7 L Hgb 14.0 Hct 39.9 L Plt Count 243 Sodium 142 Potassium 3.7 Chloride 106 Carbon Dioxide 26 BUN 10 Creatinine 0.81 Assessment and Plan Assessment Anesthesia Assessment: Chart Reviewed Documented by User: Chrystal Mejía MD 11/06/24 09:21 [facility] Past Medical History Medical History (Updated 11/06/24 @ 08:46 by Saray Orourke RN) GERD (gastroesophageal reflux disease) Normal esophagogastroduodenoscopy (EGD) Cough Venous reflux Gout Internal hemorrhoids Factor 5 Leiden mutation, heterozygous Anxiety DVT (deep venous thrombosis) Erectile dysfunction Patellar dislocation Family History Family History (Reviewed 09/10/24 @ 11:36 by ALEX GarciaUN[facility]) Father Cancer Diabetes mellitus Mother History of knee replacement HTN (hypertension) Melanoma Maternal Grandfather No problems noted. Maternal Grandmother Glaucoma Paternal Grandfather No problems noted. Paternal Grandmother No problems noted. Family history of problems with anesthesia: No Surgical History Surgical History (Updated 11/06/24 @ 08:48 by Saray Orourke RN) H/O right knee surgery History of tonsillectomy H/O colonoscopy History of varicose veins History of left knee surgery History of Problems with Anesthesia: No Social History Social History (Reviewed 09/10/24 @ 11:36 by ALEX GarciaUN[facility]) Household Members: Spouse Housing: House Are you a primary progressive care unit registered nurse to a significant other at home: No Do you presently have visiting nurse or other home services: No Patient Tobacco Use Status: Never used Tobacco e-Cigarette/Vaping Use: Never Used Use of substances other than those prescribed or required for medical reasons: No Are you DNR?: No Advance Directives: No Advance Directives Information Provided: Yes Poor oral hygiene: No service: Yes Current occupational status: retired Cognitive needs: No Hearing needs: No Vision needs: Yes Meds Allergies Allergy/AdvReac Type Severity Reaction Status Date / Time bupropion AdvReac Intermediate Anxiety Verified 09/10/24 11:14 Home Medications ?Medication ?Instructions ?Recorded ?Confirmed ?Last Taken ?Type multivitamin 1 tab PO DAILY 02/16/21 09/10/24 Unknown History rivaroxaban 20 mg tablet (Xarelto) 20 mg PO DAILY 06/15/21 09/10/24 11/02/24 History simvastatin 80 mg tablet 40 mg PO DAILY 06/15/21 09/10/24 Unknown History loratadine 10 mg tablet 10 mg PO DAILY 08/17/21 09/10/24 Unknown History omeprazole 20 mg capsule,delayed 1 cap PO DAILY 08/17/21 09/10/24 Unknown History release venlafaxine 150 mg 225 mg PO DAILY 12/19/22 09/10/24 Unknown History capsule,extended release 24 hr erenumab-aooe 70 mg/mL 70 mg subcut QMONTH 09/10/24 09/10/24 Unknown History subcutaneous auto-injector (Aimovig Autoinjector) Exam Airway Mallampati Class: II TM Dist: >3cm Neck ROM: Full Heart: rrr Lungs: cta Assessment and Plan Assessment Anesthesia Assessment: Anesthesia Plan Discussed Final Anesthetic Review Family History of Problems with Anesthesia: No History of Problems with Anesthesia: No NPO: Yes ASA Class: II Final Preanesthetic Review: No Changes in Pt Med Stat, Meds/Allgs Chart Reviewed and Consent Obtained/Reviewed Patient Risk: Intermediate Procedure Risk: Intermediate Anesthetic Plan Anesthetic Plan: MAC: Disposition: Standard PACU
[2024-11-04 12:35] VITALS: BMI 30.9
[2024-11-06 08:52] VITALS: BMI 31.0
[2024-11-06 08:57] VITALS: BP 170/100; PULSE 98; RESP 16; TEMP 36.7; O2SAT 97
[2024-11-06 09:05] LABS: Glucose, Whole Blood 136 mg/dL (60-115)
[2024-11-06] MEDS: Lactated Ringers 1,000 ML 100 ML IVCONT (09:09)
--- NOTE | 2024-11-06 09:25 | MHC.SHP ---
Pre-Procedural Eval Section A - 24 Hr Update-Section A only Date of Service: 11/06/24 The patient is an INPATIENT: No The patient has been examined within 24 hours of the surgical procedure. The History & Physical has been completed within 30 days and I have reviewed it.: No Section B - Complete if H&P > 30 days Chief Complaint: gerd,screening Relevant Family History (Specify if Yes): No Relevant Social History: None Present Medications: see Short Stay Collaborative assessment Medical History: Significant History (GERD (gastroesophageal reflux disease) Normal esophagogastroduodenoscopy (EGD) Cough Venous reflux Gout Internal hemorrhoids Factor 5 Leiden mutation, heterozygous Anxiety DVT (deep venous thrombosis) Erectile dysfunction Patellar dislocation) History of Previous Operations: Relevant previous surgery/procedure and date(s) (H/O colonoscopy History of varicose veins History of left knee surgery) Allergies: Allergies Allergy/AdvReac Type Severity Reaction Status Date / Time bupropion AdvReac Intermediate Anxiety Verified 09/10/24 11:14 Review of Systems Sugical H&P ROS: Negative: Constitution, Cardiovascular and Respiratory and Yes, Specify: Gastrointestinal (Chronic diarrhea) Exam Surgical H&P Exam: Normal: Heart, Normal: Lungs, Normal: Extremities and Normal: Abdomen Plan Diagnosis/Plan: Unchanged I have reviewed the history and physical and performed a pertinent physical examination on my patient. No changes have occurred unless specified. Time Spent With Patient Time: Total time managing care of this patient today ____ minutes.
--- NOTE | 2024-11-06 10:16 | P.OPN-COLO_ITS ---
Colonoscopy Operative Note Operative Note Date of Service: 11/06/24 Narrative: FLEXIBLE TRANSORAL UPPER GASTROINTESTINAL ENDOSCOPY WITH BIOPSIES AND COLONOSCOPY TILL CECUM WITH BIOPSIES Pre-op diagnosis: Colon cancer screening, GERD Post-op diagnosis: GERD, Gastritis, Diverticulosis, hemorrhoids Endoscopist:? Daniel Lozoya MD Anesthesia:?MAC UPPER ENDOSCOPY Consent: Indications for the procedure and potential complications of bleeding, perforation, reaction to medications and missed diagnosis were discussed with the patient and informed consent was obtained. Instrument: Olympus GIF H 190 mid size upper endoscope Monitoring: Vital signs and clinical assessment, continuous EKG monitoring, Pulse oximetry, Carbon Dioxide monitoring and blood pressure monitoring were done throughout the procedure. Procedure: The patient was placed in the left lateral decubitis position and pre-procedure medications were administered and a bite block was placed. The endoscope was inserted into the mouth and advanced under direct vision to the third part of duodenum. A careful inspection was made as the upper endoscope was withdrawn including a retroflexed examination of the proximal stomach; Findings and interventions are described below. Findings: Larynx: Normal Esophagus: GE junction at 40 cms. No esophagitis or Srinivasan's. Stomach: Moderate diffuse gastric erythema with nodular appearing mucosa in the gastric body and fundus biopsies were obtained from the gastric body and antrum. Grade 2 flap valve on retroflexed examination of the cardia. Duodenum: Normal bulb and descending duodenum Biopsies were obtained from descending duodenum to check for celiac sprue Intervention: Biopsies as noted above COLONOSCOPY PROCEDURE NOTE Instrument: Olympus CF H 190 L variable stiffness adult colonoscope Monitoring: Vital signs and clinical assessment, intermittent blood pressure monitoring, continuous EKG monitoring, Pulse oximetry and Carbon Dioxide monitoring were done throughout the procedure. Please see anesthesia flowsheet. Colon withdrawl time was 21 minutes. Procedure: The patient was placed in the left lateral decubitis position and pre-procedure medications were administered. After a digital rectal examination of the ano-rectum, the video colonoscope was inserted into the rectum and advanced through the colon to the cecum. The colonoscope was slowly withdrawn in a retrograde panoramic fashion and the colon mucosa was carefully examined including a retroflexed view of the rectum. Findings and interventions are described below. Procedure Difficulty: without difficulty Findings: Terminal Ileum: Not evaluated Cecum: Normal Ascending Colon: Normal Transverse Colon: Normal Descending Colon: Normal Sigmoid Colon: Moderate diverticulosis Rectum: Normal Ano-rectum: Moderate internal hemorrhoids Colon preparation: Excellent, after some irrigation. [place] Bowel Preparation Scale Right colon; 3 Transverse colon: 3 Left colon; 3 (0 = Unprepared colon segment with mucosa not seen due to solid stool that cannot be cleared. 1 = Portion of mucosa of the colon segment seen, but other areas of the colon segment not well seen due to staining, residual stool and/or opaque liquid. 2 = Minor amount of residual staining, small fragments of stool and/or opaque liquid, but mucosa of colon segment seen well. 3 = Entire mucosa of colon segment seen well with no residual staining, small fragments of stool or opaque liquid) Impression and Post Procedure Diagnosis: Endoscopy Findings: ESOPHAGUS: No esophagitis or Srinivasan's. STOMACH: Diffuse gastritis DUODENUM: Normal - biopsies obtained to check for celiac sprue. Colonoscopy Findings: No polyps were detected Random biopsies were obtained from the colon to check for microscopic colitis. Moderate diverticulosis seen in the sigmoid colon Moderate hemorrhoids on retroflexed exam. Plan: Pt has a FU appointment on 12/16/24 with Marilyn Shepard NP Repeat Colonoscopy in 10 years if colon biopsies are normal. A summary of above findings and relevant handouts were given to the patient. BIOPSIES SHOWED: A. Small bowel, biopsy: Small intestinal mucosa within normal limits. B. Stomach, antrum, biopsy: Antral-type mucosa with mild chronic inactive i nflammation; no Helicobacter organisms seen. C. Stomach, body, biopsy: Oxyntic mucosa with mild chronic inactive inflammation; no Helicobacter organisms seen. D. Colon, random, biopsy: Colonic mucosa within normal limits. Comment: Diagnostic morphologic features of celiac disease or microscopic colitis are not seen Letter sent with the patient with biopsy results. Patient was placed on the colonoscopy recall list for repeat colonoscopy in 10 years.
[2024-11-06 10:58] VITALS: BP 102/68; PULSE 88; RESP 16; TEMP 37.2; O2SAT 94
[2024-11-06 11:13] VITALS: BP 128/83; PULSE 72; RESP 16; TEMP 37.1; O2SAT 98
== END 2024-11-06 12:43 | disposition home or self-care (01) ==
PROVIDERS: PCP Nurse Practitioner Family; Visit Provider Internal Medicine Gastroenterology
PROC: (CPT 45380; principal; 2024-11-06 10:10)
DX: Z12.11 Encounter for screening for malignant neoplasm of colon (principal); K57.30 Diverticulosis of large intestine without perforation or abscess without bleeding; K64.8 Other hemorrhoids; K52.9 Noninfective gastroenteritis and colitis, unspecified; K21.9 Gastro-esophageal reflux disease without esophagitis; K29.50 Unspecified chronic gastritis without bleeding; I10 Essential (primary) hypertension; I82.402 Acute embolism and thrombosis of unspecified deep veins of left lower extremity; E78.5 Hyperlipidemia, unspecified; D68.51 Activated protein C resistance; M10.9 Gout, unspecified; Z79.899 Other long term (current) drug therapy; Z88.8 Allergy status to other drugs, medicaments and biological substances; Z98.890 Other specified postprocedural states
CPT/HCPCS: 45380; 43239; 82947; 88305; 88313; 88342; J1596; J2003; J2250; J2704

== ENCOUNTER → 2024-11-06 08:05 | Outpatient (BNV) | payer MEDICARE, SELFPAY | PROVIDERS: PCP Nurse Practitioner Family; Visit Provider Internal Medicine Gastroenterology | DX: Z12.11 Encounter for screening for malignant neoplasm of colon (principal); K57.30 Diverticulosis of large intestine without perforation or abscess without bleeding; K64.8 Other hemorrhoids; K21.9 Gastro-esophageal reflux disease without esophagitis; K29.70 Gastritis, unspecified, without bleeding | CPT/HCPCS: 43239; 45380 ==

== ENCOUNTER 2025-01-06 08:35 | Outpatient (REF) | payer OTHER, SELFPAY ==
[2025-01-06 10:49] LABS: MANUAL DIFF FLAG NO
[2025-01-06 10:59] LABS: Appearance Urine Turbid; Glucose Urine UA Negative (Negative); PH 6.0 (5.0-9.0); Specific Gravity - Urine >= 1.030 (1.005-1.025)
[2025-01-06 11:10] LABS: Hematocrit 41.4 % (42.0-52.0); Hemoglobin 14.2 g/dl (14.0-18.0); Imm Gran Abs Auto 0.03 X10*3/uL (0.00-0.03); Imm Gran Pct Auto 0.6 % (0.0-0.4); Lymphocytes Absolute Auto 1.3 X10*3/uL (1.2-4.9); Mean Corpuscular HGB Conc 34.3 g/dl (31.0-36.0); Mean Corpuscular Hemoglobin 31.1 pg (27.0-33.0); Mean Corpuscular Volume 90.8 fL (80.0-98.0); NRBC Abs Auto 0.000 X10*3/uL (0.0-0.012); NRBC Pct Auto 0.0 /100WBC (0.0-0.2); Platelet Count 266 X10*3/uL (160-400); Red Blood Count 4.56 X10*6/uL (4.60-5.80); White Blood Count 5.1 X10*3/uL (4.8-10.8)
[2025-01-06 11:20] LABS: Microalbum/Creatinine Ratio Ur 3.6 ug/mg cr (<30)
[2025-01-06 12:31] LABS: Alanine Aminotransferase 32 U/L (0-40); Albumin Level 4.3 g/dL (3.5-5.0); Alkaline Phosphatase 73 U/L (39-117); Anion Gap 13 (12-20); Aspartate Amino Transferase 30 U/L (5-37); Blood Urea Nitrogen 14 mg/dL (9-16); Calcium 9.1 mg/dL (8.4-10.2); Carbon Dioxide 29 mmol/L (22-29); Chloride 104 mmol/L (96-108); Cholesterol 147 mg/dL (<200); Estimated Glomerular Filt Rate > 60; HDL Cholesterol 66 mg/dL (>40); Potassium 3.9 mmol/L (3.3-5.1); Sodium 142 mmol/L (135-145); Total Protein 6.8 g/dL (6.5-8.0); Triglycerides 258 mg/dL (<150)
== END 2025-01-06 08:36 | disposition home or self-care (01) ==
LOC: HO.HMGCLDS 08:35
PROVIDERS: PCP Nurse Practitioner Family; Visit Provider Nurse Practitioner Family
DX: E11.9 Type 2 diabetes mellitus without complications (principal)
CPT/HCPCS: 36415; 80053; 80061; 81003; 82043; 82570; 83036; 84443; 85025

== ENCOUNTER 2025-01-12 08:39 | Outpatient (AMB) | payer MEDICARE, SELFPAY ==
[2025-01-12 08:46] VITALS: BP 146/88; PULSE 88; RESP 16; O2SAT 96; BMI 32.1
--- NOTE | 2025-01-12 08:46 | A.OFFPC_ITS ---
Vital Signs 01/12/25 08:46 01/12/25 09:15 Height 6 ft 1 in Weight 243 lb BMI 32.1 BP 146/88 H 124/82 Blood Pressure Location Lt brachial Rt brachial Position Sitting Respiration 16 Pulse 88 Pulse Source Pulse Oximeter Pulse Oximetry (%) 96 Oxygen Delivery Method Room Air Intake Visit Reasons: 4m follow up [employer] Manager Required: No Accompanied by: Self / Same As Patient Allergies bupropion Adverse Reaction (Intermediate, Verified 01/12/25 09:19) Anxiety Medication List - Last Reconciled 01/12/25 by Nico Rosario [facility]- blood sugar diagnostic (FreeStyle Lite Strips) Test blood sugar once a day blood-glucose meter (FreeStyle Lite Meter kit) As directed erenumab-aooe (Aimovig Autoinjector) 70 mg subcut QMONTH lancets (FreeStyle Lancets) Test blood sugar once a day loratadine 10 mg PO DAILY losartan 50 mg PO DAILY multivitamin 1 tab PO DAILY omeprazole 1 cap PO DAILY rivaroxaban (Xarelto) 20 mg PO DAILY simvastatin 40 mg PO DAILY venlafaxine ER 225 mg PO DAILY Tobacco use date assessed: 01/12/25 Dental Screening Dental Screen Date: 01/12/25 Did you have a dental visit in the last 12 months?: Yes Did you have a dental problem in the last 6 months where you did not have access to dental care?: No Was dental information given to patient?: Patient has dentist HPI 4m follow up HPI Details Chief Complaint The patient presents for an annual follow-up visit for management of diabetes and hypertension. History of Present Illness The patient is a 59 year old individual presenting for an annual follow-up for diabetes and hypertension. The patient has a history of diabetes complicated by neuropathy, with minimal sensation in the feet. The patient's microalbumin level is up to date, and the patient is aware of the need for yearly eye examinations. 6.0 a1c today Regarding hypertension, the [facility]'s [place] provider recently increased the losartan dosage from 25 mg to 50 mg approximately one week ago. Recent lab work revealed that the patient's triglyceride levels have nearly doubled, though LDL cholesterol is well-controlled at 30 mg/dL while on a statin. In response, the patient has begun to focus more on diet and is enrolled in a nutrition program. Social History - Nutrition: The patient has recently st jim to work more on diet and is part of a nutrition program. Health Maintenance - Diabetic Eye Exam: The patient is awar e of the need for yearly eye exams. - Diabetic Nephropathy Screening: The [facility] microalbumin screen is up to date. - Diet: The patient is actively working on diet and is enrolled in a nutrition program. Review of Systems - Neurological: Denies dizziness, blurre d vision, and headaches. Physical Exam General: Cooperative, healthy appearing, comfortable, no acute distress and well developed Orientation: Patient oriented x3 Limitations: No limitations Head: Normal to inspection Ears: Hearing grossly normal bilaterally Nose: Normal external nose present Face and sinus: Normal facial exam Eyes: Appearance normal, both eyes and all related structures Neck: Normal visual inspection and Yes full ROM Respiratory: Normal respiratory effort and able to speak in complete sentences. Clear to auscultation bilaterally Cardiovascular: Regular rate and rhythm. Normal S1 and S2 GI: Normal to inspection. Soft to palpation and nontender Skin: No rashes or lesions noted Neuro: Patient oriented x3, some neuropathy with very minimal sensation with use of monofilament to feet Extremities: Normal to inspection, positive thoracalis pedis Results - Labs - Triglycerides were noted to be almost double the previous value. - LDL cholesterol was 30 mg/dL. - Microalbumin screen is up to date. Plan Patient was informed and verbally consented to the use of an ambient scribe for clinic note documentation during this visit. 1. Hypertension The patient's losartan dose was recently increased from 25 mg to 50 mg by the [facility]. The patient will monitor blood pressure at home and send the values via the patient portal for review. 2. Diabetes Mellitus The patient has known diabetic neuropathy with minimal sensation in the feet. The patient is up to date on microalbumin screening and is aware of the recommendation for yearly eye exams. 3. Hyperlipidemia, Mixed Recent lab results indicate an LDL of 30, which is well-controlled, but triglycerides have almost doubled. The patient is on a statin and has recently started working on diet as part of a nutrition program. A repeat lipid panel will be checked in 2 to 2.5 months. Discussion Notes I discussed the recent lab results with the patient, highlighting the excellent LDL control but also noting the significant increase in triglyceride levels. We will recheck these labs in approximately 2 to 2.5 months to assess the impact of recent dietary changes. I have instructed the patient to monitor blood pressure closely at home, given the recent dose increase of losartan, and to send me the values through the patient portal for review. We also reinforced the importance of yearly eye examinations as part of routine diabetes care. Patient Instructions - Please check your blood pressure at ho me regularly. - Send your home blood pressure readings to me through the patient portal in the near future. - We will recheck your lab work in about 2 to 2.5 months. - Remember to schedule your yearly eye e xams. - Please let me know if you experience a ny new dizziness, blurred vision, or headaches. [facility] Medical History GERD (gastroesophageal reflux disease) Normal esophagogastroduodenoscopy (EGD) Cough Venous reflux Gout Internal hemorrhoids Factor 5 Leiden mutation, heterozygous Anxiety DVT (deep venous thrombosis) Erectile dysfunction Patellar dislocation Surgical History H/O right knee surgery History of tonsillectomy H/O colonoscopy History of varicose veins History of left knee surgery Family History Father Cancer Diabetes mellitus Mother History of knee replacement HTN (hypertension) Melanoma Maternal Grandfather No problems noted. Maternal Grandmother Glaucoma Paternal Grandfather No problems noted. Paternal Grandmother No problems noted. Social History Household Members: Spouse Housing: House Are you a primary manager intensive care to a significant other at home: No Do you presently have visiting nurse or other home services: No Patient Tobacco Use Status: Never used Tobacco e-Cigarette/Vaping Use: Never Used service: Yes Current occupational status: retired Cognitive needs: No Hearing needs: No Vision needs: Yes Questionnaire PHQ-9 Over the last 2 weeks, how often have you been bothered by any of the following problems? 1. Little interest or pleasure in doing things: not at all 2. Feeling down, depressed, or hopeless: not at all 3. Trouble falling or staying asleep, or sleeping too much: not at all 4. Feeling tired or having little energy: not at all 5. Poor appetite or overeating: not at all 6. Feeling bad about yourself - or that you are a failure or have let yourself or your family down: not at all 7. Trouble concentrating on things, such as reading the newspaper or watching television: not at all 8. Moving or speaking so slowly that other people could have noticed. Or the opposite - being so fidgety or restless that you have been moving around a lot more than usual: not at all 9. Thoughts that you would be better off or of hurting yourself in some way: not at all Total score: 0 Depression Screening Interpretation: Negative Depression Screening Done: Yes 39984 - PHQ-9 Billing: Yes Source: Developed by Drs. Eduar Martell, Britney Marie, Zi Thomas and colleagues, with an educational mae from [employer]. Thrive Questionnaire Date Thrive assessed: 03/12/24 I am a: Patient What is your living situation today?: I have a steady place to live Within the past 12 months, did the food you bought not last and you didn't have the money to get more?: Never true Within the past 12 months, did you worry whether your food would run out before you got money to buy more?: Never true Do you have trouble paying for medicines?: No Do you have trouble getting transportation to medical appointments?: No Do you have trouble paying your heating and electricity bill?: No Do you have trouble taking care of your child, family member or friend?: No Do you have trouble with day-to-day activities such as bathing, preparing meals, shopping, managing finances, etc.?: No Are you currently unemployed and looking for a job?: No Are you interested in more education?: No Please select the resources that you would like help with: None Currently or been in a relationship where the following occur: No concerns reported THRIVE Score: 0 SABI-7 AMB Questionnaire SABI-7 Date SABI - 7 assessed: 01/12/25 Feeling nervous, anxious, or on edge: 0 = Not at all Not being able to stop or control worryin = Not at all Worrying too much about different things: 0 = Not at all Trouble relaxin = Not at all Being so restless that it is hard to sit still: 0 = Not at all Becoming easily annoyed or irritable: 0 = Not at all Feeling afraid as if something awful might happen: 0 = Not at all Total SABI-7 score (0-4 normal; 5-9 mild; 10-14 moderate; 15-21 severe): 0 Source: Developed by Drs. Eduar Martell, Britney Marie, Zi Thomas and colleagues, with an educational mae from [employer]. SABI-7 Assessment Billing SABI-7 Assessment Tool: SABI-7 Assessment 73298 Physical exam (Primary Care) Vital Signs: Last Vital Signs Pulse 88 01/12/25 08:46 Resp 16 01/12/25 08:46 BP 146/88 H 01/12/25 08:46 Pulse Ox 96 01/12/25 08:46 Oxygen Delivery Method Room Air 01/12/25 08:46 BMI result Body Mass Index 32.1 Tobacco/Smoking Status: Tobacco use Status Tobacco use date assessed 01/12/25 01/12/25 08:53 Patient Tobacco Use Status Never used Tobacco 01/12/25 08:53 e-Cigarette/Vaping Use Never Used 01/12/25 08:53 PHQ-9: PHQ-9 Score PHQ-9: Total score 0 01/12/25 09:07 Depression Screening Interpretation: Negative Thrive Assessment: Date of Thrive Assessment Date Thrive assessed 03/12/24 01/12/25 08:53 Currently or been in a relationship where the following occur: No concerns reported Coding Level of Care Code Est Pt Level 3 (98820) Diagnoses High triglycerides E78.1 HTN (hypertension) I10 Newly diagnosed diabetes E11.9 Additional Codes SABI-7 Assessment Billing - SABI-7 Assessment Tool: SABI-7 Assessment 28563 ([id number]) PHQ-9 - 17688 - PHQ-9 Billing: Yes ([id number]) Assessment & Plan Assessment & Plan (1) High triglycerides: Code(s): E78.1 - Pure hyperglyceridemia Category: Medical (2) HTN (hypertension): Code(s): I10 - Essential (primary) hypertension Category: Medical (3) Newly diagnosed diabetes: Code(s): E11.9 - Type 2 diabetes mellitus without complications Category: Medical Plan . Orders: Orders Lipid Panel 2 Months E78.1 - Pure hyperglyceridemia Comprehensive Early Branch. Panel Fast 2 Months E78.1 - Pure hyperglyceridemia
[2025-01-12 09:15] VITALS: BP 124/82
== END 2025-01-12 09:20 | disposition home or self-care (01) ==
LOC: HO.HMCC 08:40
PROVIDERS: PCP Nurse Practitioner Family; Visit Provider Nurse Practitioner Family
DX: E78.1 Pure hyperglyceridemia (principal); I10 Essential (primary) hypertension; E11.9 Type 2 diabetes mellitus without complications

== ENCOUNTER → 2025-01-12 08:39 | Outpatient (BNVA) | payer MEDICARE, SELFPAY | PROVIDERS: PCP Nurse Practitioner Family; Visit Provider Nurse Practitioner Family | DX: I10 Essential (primary) hypertension (principal); E11.40 Type 2 diabetes mellitus with diabetic neuropathy, unspecified; E78.1 Pure hyperglyceridemia | CPT/HCPCS: 96127; 99212 ==